=== PATIENT | male | born 1945 | race Caucasian/White ===

== ENCOUNTER 2017-02-26 10:24 | Emergency (ER) | payer MEDICARE ==
[~2017-02-26] VITALS: Ht 165.1 cm; Wt 74.8 kg
[~2017-02-26 10:24] MED LIST: ALBU0.8322 IH; ALBU8.5H2 IH; ASPI-999 PO; ATOR20TA66 PO; Advair; Amoxicillin; BUDE10.2 IH; DOXY100C2 PO; IBUP-30 PO; IPRA3AMP19 IH; LEVO500T69 PO; LSNP20T PO; METH4TAB PO; METO-272 PO; PRD20T PO; RT-ALBUINH IH
--- OUTSIDE RECORDS SUMMARY | 2017-02-26 10:32 | XMS REPORT ---
Author Author BERTO ALMENDAREZ [facility] eClinicalWorks Address Unknown Phone Unavailable Care Team Providers Care Women'S Studies Lecturer Name Role Phone BERTO ALMENDAREZ Unavailable Allergies No Known Allergies Problems Problem Type Condition Code Onset Dates Condition Status Problem Primary localized osteoarthrosis, pelvic region and thigh 715.15 Active Problem Pain in joint, pelvic region and thigh 719.45 Active Problem Enthesopathy of hip region 726.5 Active Problem Need for prophylactic vaccination and inoculation, Influenza V04.81 Active Problem Unspecified essential hypertension 401.9 Active Problem Chronic airway obstruction, not elsewhere classified 496 Active Medications Medication Code System Code Instructions Start Date End Date Status Dosage Symbicort [facility] [address]-15 160-4.5 MCG/ACT Inhalation Twice a day Mar 2 puffs ProAir HFA [facility] [address]-33 90 mcg/actuation Inhalation 4 times a day Jun 07, 2014 inhale 2 puffs by Inhalation route 4 times per day as needed PRN Results No Known Results Summary Purpose eClinicalWorks Submission
--- OUTSIDE RECORDS SUMMARY | 2017-02-26 10:32 | XMS REPORT ---
Author Author RILEY HATFIELD Organization eClinicalWorks Address Unknown Phone Unavailable Care Team Providers Care Radiographer Mammographer Name Role Phone RILEY HATFIELD CP Unavailable Allergies, Adverse Reactions, Alerts Substance Reaction Event Type Spiriva HandiHaler Info Not Available Drug Allergy Problems Problem Type Condition Code Onset Dates Condition Status Assessment Essential hypertension I10 Active Problem Need for prophylactic vaccination and inoculation, Influenza V04.81 Active Assessment Chronic obstructive pulmonary disease, unspecified COPD type J44.9 Active Problem Essential hypertension I10 Active Problem Enthesopathy of hip region 726.5 Active Problem Chronic obstructive pulmonary disease, unspecified COPD type J44.9 Active Problem Unspecified essential hypertension 401.9 Active Problem Chronic airway obstruction, not elsewhere classified 496 Active Problem Primary localized osteoarthrosis, pelvic region and thigh 715.15 Active Problem Pain in joint, pelvic region and thigh 719.45 Active Medications Medication Code System Code Instructions Start Date End Date Status Dosage Ventolin HFA [facility] [address]-38 108 (90 Base) MCG/ACT Inhalation every 4 hrs 2 puffs as needed Albuterol Sulfate [facility] [address]-04 (2.5 MG/3ML) 0.083% Inhalation every 4 hours prn cough or wheezing May 02, 2015 3 ml Lisinopril [facility] [address]-50 10 mg Orally Once a day Feb 28, 2016 1 tablet Symbicort [facility] [address]-96 160-4.5 MCG/ACT Inhalation Twice a day Mar 2 puffs Atorvastatin Calcium [facility] [address]-76 20 MG Orally Once a day 1 tablet Metoprolol Succinate [facility] 0 50 mg Orally Once a day Jun 23, 2015 1 tab Furosemide [facility] [address]-68 20 mg Orally Once a day x 3 d use prn ankle swelling February 12, 2016 1 tablet Aspir-81 [facility] [address]-69 81 MG Orally Once a day 1 tablet Procedures Procedure Coding System Code Date Office Visit, Est Pt., Level 3 CPT-4 47410 Feb 28, 2016 [facility] VISIT ESTABLISHED PATIENT CPT-4 G0467 Feb 28, 2016 Vital Signs Date/Time: Feb 28, 2016 Cardiac Monitoring Heart Rate 92 bpm Weight 194.2 lbs Height 66 in BMI 31.34 Index Blood Pressure Diastolic 70 mmHg Blood Pressure Systolic 154 mmHg Results No Known Results Summary Purpose eClinicalWorks Submission
--- OUTSIDE RECORDS SUMMARY | 2017-02-26 10:32 | XMS REPORT ---
Author Author BERTO ALMENDAREZ eClinicalWorks Address Unknown Phone Unavailable Care Team Providers Care Shear Helper Name Role Phone BERTO ALMENDAREZ Unavailable Allergies, Adverse Reactions, Alerts Substance Reaction Event Type N.K.D.A. Info Not Available Non Drug Allergy Problems Problem Type Condition Code Onset Dates Condition Status Problem Primary localized osteoarthrosis, pelvic region and thigh 715.15 Active Problem Pain in joint, pelvic region and thigh 719.45 Active Problem Enthesopathy of hip region 726.5 Active Problem Need for prophylactic vaccination and inoculation, Influenza V04.81 Active Assessment Chronic obstructive pulmonary disease with acute lower respiratory infection J44.0 Active Problem Unspecified essential hypertension 401.9 Active Problem Chronic airway obstruction, not elsewhere classified 496 Active Medications Medication Code System Code Instructions Start Date End Date Status Dosage Atorvastatin Calcium [facility] [address]-93 20 MG Orally Once a day 1 tablet Albuterol Sulfate [facility] [address]-25 (2.5 MG/3ML) 0.083% Inhalation every 4 hours prn cough or wheezing May 02, 2015 3 ml Aspir-81 [facility] [address]-94 81 MG Orally Once a day 1 tablet Symbicort [facility] [address]-29 160-4.5 MCG/ACT Inhalation Twice a day Mar 2 puffs Incruse Ellipta [facility] [address]-25 62.5 MCG/INH Inhalation Once a day Jun 1 puff ProAir HFA [facility] [address]-55 90 mcg/actuation Inhalation 4 times a day Jun 07, 2014 inhale 2 puffs by Inhalation route 4 times per day as needed PRN Metoprolol Succinate [facility] 0 50 MG Orally Jun 23, 2015 not defined Procedures Procedure Coding System Code Date Office Visit, Est Pt., Level 3 CPT-4 00922 Jul 07, 2015 [facility] VISIT ESTABLISHED PATIENT CPT-4 G0467 Jul 07, 2015 Vital Signs Date/Time: Jul 07, 2015 Temperature 98.4 F Weight 183.4 lbs Height 66 in BMI 29.60 Index Blood Pressure Diastolic 80 mmHg Blood Pressure Systolic 154 mmHg Cardiac Monitoring Heart Rate 92 bpm Results No Known Results Summary Purpose eClinicalWorks Submission
--- OUTSIDE RECORDS SUMMARY | 2017-02-26 10:32 | XMS REPORT ---
Author Author BERTO ALMENDAREZ [facility] eClinicalWorks Address Unknown Phone Unavailable Care Team Providers Care Cutter Finisher Name Role Phone BERTO ALMENDAREZ Unavailable Allergies No Known Allergies Problems Problem Type Condition Code Onset Dates Condition Status Assessment Chronic obstructive pulmonary disease, unspecified J44.9 Active Problem Primary localized osteoarthrosis, pelvic region and thigh 715.15 Active Problem Pain in joint, pelvic region and thigh 719.45 Active Problem Enthesopathy of hip region 726.5 Active Problem Need for prophylactic vaccination and inoculation, Influenza V04.81 Active Assessment Encounter for immunization Z23 Active Problem Unspecified essential hypertension 401.9 Active Problem Chronic airway obstruction, not elsewhere classified 496 Active Medications Medication Code System Code Instructions Start Date End Date Status Dosage Albuterol Sulfate [facility] [address]-68 (2.5 MG/3ML) 0.083% Inhalation every 4 hours prn cough or wheezing May 02, 2015 3 ml Procedures Procedure Coding System Code Date SINGLE IMMUNIZATION ADMIN CPT-4 67615 May 02, 2015 FLUARIX QUAD (3 & UP)-GSK-2014 CPT-4 22670 May 02, 2015 Results No Known Results Immunizations Vaccine Administration Date FLUARIX QUAD (3 & UP)-GSK-2014May 02, 2015 Summary Purpose eClinicalWorks Submission
--- OUTSIDE RECORDS SUMMARY | 2017-02-26 10:32 | XMS REPORT ---
Author Author BERTO ALMENDAREZ [facility] eClinicalWorks Address Unknown Phone Unavailable Care Team Providers Care Hand Bunch Maker Name Role Phone BERTO ALMENDAREZ Unavailable Allergies No Known Allergies Problems Problem Type Condition ICD-9 Code Onset Dates Condition Status Problem Primary [...] Start Date End Date Status Dosage Symbicort [facility] [address]-49 160-4.5 MCG/ACT Inhalation Twice a day Mar 2 puffs Results No Known Results Summary Purpose eClinicalWorks Submission
--- OUTSIDE RECORDS SUMMARY | 2017-02-26 10:32 | XMS REPORT ---
Author Author RILYE HATFIELD Organization eClinicalWorks Address Unknown Phone Unavailable Care Team Providers Care Mirror Silverer Name Role Phone RILEY HATFIELD CP Unavailable Allergies, Adverse Reactions, Alerts Substance Reaction Event Type Spiriva HandiHaler Info Not Available Drug Allergy Problems Problem Type Condition Code Onset Dates Condition Status Assessment Essential hypertension I10 Active Problem Need for prophylactic vaccination and inoculation, Influenza V04.81 Active Assessment Chronic obstructive pulmonary disease, unspecified COPD type J44.9 Active Assessment Pedal edema R60.0 Active Problem Essential hypertension I10 Active Problem [...] Date End Date Status Dosage Atorvastatin Calcium [facility] [address]-50 20 MG Orally Once a day 1 tablet Aspir-81 [facility] [address]-95 81 MG Orally Once a day 1 tablet Symbicort [facility] [address]-04 160-4.5 MCG/ACT Inhalation Twice a day Mar 2 puffs Incruse Ellipta [facility] [address]-13 62.5 MCG/INH Inhalation Once a day Jun 1 puff ProAir HFA [facility] [address]-70 90 mcg/actuation Inhalation 4 times a day Jun 07, 2014 inhale 2 puffs by Inhalation route 4 times per day as needed PRN Albuterol Sulfate [facility] [address]-15 (2.5 MG/3ML) 0.083% Inhalation every 4 hours prn cough or wheezing May 02, 2015 3 ml Metoprolol Succinate [facility] 0 50 MG Orally Once a day Jun 23, 2015 1 tab Furosemide [facility] [address]-88 20 mg Orally Once a day x 3 d use prn ankle swelling February 12, 2016 1 tablet Procedures Procedure Coding System Code Date Office Visit, Est Pt., Level 3 CPT-4 12591 February 12, 2016 [facility] VISIT ESTABLISHED PATIENT CPT-4 G0467 February 12, 2016 Vital Signs Date/Time: February 12, 2016 Cardiac Monitoring Heart Rate 94 bpm Weight 196.2 lbs Height 66 in BMI 31.66 Index Blood Pressure Diastolic 70 mmHg Blood Pressure Systolic 160 mmHg Results No Known Results Summary Purpose eClinicalWorks Submission
--- OUTSIDE RECORDS SUMMARY | 2017-02-26 10:32 | XMS REPORT ---
Author Author BERTO ALMENDAREZ [facility] eClinicalWorks Address Unknown Phone Unavailable Care Team Providers Care Printing Equipment Mechanic Apprentice Name Role Phone BERTO ALMENDAREZ Unavailable Allergies No Known Allergies Problems Problem Type Condition Code Onset Dates Condition Status Problem Primary localized osteoarthrosis, pelvic region and thigh 715.15 Active Problem Pain in joint, pelvic region and thigh 719.45 Active Problem Enthesopathy of hip region 726.5 Active Problem Need for prophylactic vaccination and inoculation, Influenza V04.81 Active Assessment Chronic obstructive pulmonary disease, unspecified J44.9 Active Problem Unspecified essential hypertension 401.9 Active Problem Chronic airway obstruction, not elsewhere classified 496 Active Medications Medication Code System Code Instructions Start Date End Date Status Dosage Albuterol Sulfate [facility] [address]-18 (2.5 MG/3ML) 0.083% Inhalation every 4 hours prn cough or wheezing May 02, 2015 3 ml Results No Known Results Summary Purpose eClinicalWorks Submission
--- OUTSIDE RECORDS SUMMARY | 2017-02-26 10:33 | XMS REPORT ---
Author Author BERTO ALMENDAREZ [facility] eClinicalWorks Address Unknown Phone Unavailable Care Team Providers Care Children'S Literature Professor Name Role Phone BERTO ALMENDAREZ Unavailable Allergies [...] Instructions Start Date End Date Status Dosage Metoprolol Succinate [facility] 0 50 MG Orally Jun 23, 2015 not defined Vital Signs Date/Time: Jun 27, 2015 Blood Pressure Diastolic 90 mmHg Blood Pressure Systolic 130 mmHg Height 66 in Results No Known Results Summary Purpose eClinicalWorks Submission
--- OUTSIDE RECORDS SUMMARY | 2017-02-26 10:33 | XMS REPORT ---
Author Author BRENDA GOODMAN Organization eClinicalWorks Address Unknown Phone Unavailable Care Team Providers Care Supervisor Buffing And Pasting Name Role Phone BRENDA GOODMAN CP Unavailable Allergies No Known Allergies Problems Problem Type Condition ICD-9 Code Onset Dates Condition Status Problem Primary localized osteoarthrosis, pelvic region and thigh 715.15 Active Problem Pain in joint, pelvic region and thigh 719.45 Active Problem Enthesopathy of hip region 726.5 Active Problem Need for prophylactic vaccination and inoculation, Influenza V04.81 Active Assessment Dental examination V72.2 Active Problem Unspecified essential hypertension 401.9 Active Problem Chronic airway obstruction, not elsewhere classified 496 Active Medications No Known Medications Procedures Procedure Coding System Code Date INTRAORL-PERIAPICAL 1 FILM 02104 CPT-4 D0220 February 03, 2015 BITEWING - SINGLE FILM CPT-4 D0270 February 03, 2015 LTD ORAL EVALUATION - PROBLEM FOCUS CPT-4 D0140 February 03, 2015 EXTRAC ERUPTED TOOTH/EXPOSED ROOT CPT-4 D7140 February 03, 2015 Results No Known Results Summary Purpose eClinicalWorks Submission
--- OUTSIDE RECORDS SUMMARY | 2017-02-26 10:33 | XMS REPORT ---
Author Author RILEY HATFIELD Organization eClinicalWorks Address Unknown Phone Unavailable Care Team Providers Care Psychology Tech Name Role Phone RILEY HATFIELD CP Unavailable Allergies No Known Allergies Problems [...] Date End Date Status Dosage Albuterol Sulfate [facility] [address]-10 2.5 mg /3 mL (0.083 %) May 06, 2014 3 mL by Inhalation route every 4 hours cough or wheeze dx code 496 dx of COPD Hydrocodone-Acetaminophen [facility] [address]-44 5-325 MG Orally every 6 hrs PRN January 27, 2015 1 tablet as needed ProAir HFA [facility] [address]-28 90 mcg/actuation Inhalation 4 times a day Jun 07, 2014 inhale 2 puffs by Inhalation route 4 times per day as needed PRN Vital Signs Date/Time: Apr 03, 2015 Blood Pressure Diastolic 74 mmHg Blood Pressure Systolic 142 mmHg Height 66 in Results No Known Results Summary Purpose eClinicalWorks Submission
--- OUTSIDE RECORDS SUMMARY | 2017-02-26 10:33 | XMS REPORT ---
Author Author BERTO ALMENDAREZ eClinicalWorks Address Unknown Phone Unavailable Care Team Providers Care Nuclear Control Operator Name Role Phone BERTO ALMENDAREZ Unavailable Allergies, [...] vaccination and inoculation, Influenza V04.81 Active Assessment Essential hypertension I10 Active Problem Unspecified essential hypertension 401.9 Active Problem Chronic airway obstruction, not elsewhere classified 496 Active Medications Medication Code System Code Instructions Start Date End Date Status Dosage Atorvastatin Calcium [facility] [address]-23 20 MG Orally Once a day 1 tablet Aspir-81 [facility] [address]-90 81 MG Orally Once a day 1 tablet Metoprolol Succinate [facility] 0 50 MG Orally Once a day Jun 23, 2015 1 tab ProAir HFA [facility] [address]-75 90 mcg/actuation Inhalation 4 times a day Jun 07, 2014 inhale 2 puffs by Inhalation route 4 times per day as needed PRN Incruse Ellipta [facility] [address]-77 62.5 MCG/INH Inhalation Once a day Jun 1 puff Symbicort [facility] [address]-21 160-4.5 MCG/ACT Inhalation Twice a day Mar 2 puffs Albuterol Sulfate [facility] [address]-25 (2.5 MG/3ML) 0.083% Inhalation every 4 hours prn cough or wheezing May 02, 2015 3 ml Procedures Procedure Coding System Code Date Office Visit, Est Pt., Level 3 CPT-4 44130 Aug 04, 2015 [facility] VISIT ESTABLISHED PATIENT CPT-4 G0467 Aug 04, 2015 Vital Signs Date/Time: Aug 04, 2015 Temperature 98.3 F Weight 189.3 lbs Height 66 in BMI 30.55 Index Blood Pressure Diastolic 80 mmHg Blood Pressure Systolic 140 mmHg Cardiac Monitoring Heart Rate 78 bpm Results No Known Results Summary Purpose eClinicalWorks Submission
[2017-02-26] MEDS ORDERED: FURO20TA4 (10:50)
[2017-02-26] MEDS ORDERED: AMLO5TAB2 (10:50)
[2017-02-26] MEDS ORDERED: LISI40TA (10:50)
--- NOTE | 2017-02-26 11:06 | ED General ---
General Chief Complaint: General Problems/Pain Stated Complaint: ABD MELONIE Nursing Triage Note: ARRIVED VIA AMB TO ROOM 08. STATES HE THINKS HE HAS PNEUMONIA AGAIN. COMPLAINS OF PAIN LOWER RIGHT LUNG WHEN TAKING A DEEP BREATH SINCE YESTERDAY ALONG WITH SOME SOA THAT IS MORE THEN USUAL. Nursing Sepsis Screen: No Definite Risk Source of Information: Patient Exam Limitations: No Limitations History of Present Illness Time Seen by Provider: 10:40 Initial Comments Here with report of pain to the right lower lung area with deep breathing since yesterday. Does report cough. Does have history of lung problems from smoking but has not smoked in 30-40 years. States that he's had pneumonia before and this is what it feels like. Denies fever or chills. Denies other complaints Timing/Duration: 1-2 Days Severity: Moderate Associated Systoms: Chest Pain, Cough, No Fever/Chills, No Headaches, No Nausea /Vomiting, Shortness of Air, No Weakness Allergies and Home Medications Allergies Coded Allergies: No Known Drug Allergies (Unverified , 03/11/13) Home Medications Albuterol Sulfate 2.5 Mg/3 Ml Solution, 2.5 MG IH Q8H PRN for SHORTNESS OF BREATH, (Reported) Albuterol Sulfate 18 Gm Hfa.aer.ad, 1-2 PUFF IH, (Reported) Amlodipine Besylate 5 Mg Tablet, #90 (Reported) Aspirin 81 Mg Tab.chew, 81 MG PO DAILY@0900, #30 Ref 0 Prescribed by: MYA SMITH on 06/23/15 1129 Atorvastatin Calcium 20 Mg Tablet, 20 MG PO HS, #30 Ref 0 Prescribed by: MYA SMITH on 06/23/15 1129 Budesonide/Formoterol Fumarate 10.2 Gm Hfa.aer.ad, 2 PUFF IH BID, (Reported) Furosemide 20 Mg Tablet, #90 (Reported) Lisinopril 40 Mg Tablet, #90 (Reported) Metoprolol Succinate 50 Mg Tab.er.24h, 50 MG PO DAILY, #30 Ref 0 Prescribed by: MYA SMITH on 06/23/15 1129 Prednisone 20 Mg Tab, 40 MG PO DAILY, #10 Ref 0 Prescribed by: RAFFAELE PATTON on 02/26/17 1346 Constitutional: see HPI, No chills, No fever, No weakness EENTM: no symptoms reported Respiratory: see HPI, cough, No short of breath, No wheezing Cardiovascular: chest pain, No edema, No palpitations Gastrointestinal: No nausea, No vomiting Genitourinary: no symptoms reported Musculoskeletal: no symptoms reported Skin: no symptoms reported All Other Systems Reviewed Negative Unless Noted: Yes Past Hqpiifu-Ejyeyx-Hovykj Hx Patient Social History Alcohol Use: Denies Use Recreational Drug Use: No Smoking Status: Former Smoker Former Smoker/When Quit: Jul 21, 1994 Recent Foreign Travel: No Contact w/Someone Who Travel: No Recent Infectious Disease Expo: No Immunizations Up To Date Tetanus Booster (TDap): More than 5yrs PED Vaccines UTD: Yes Date of Pneumonia Vaccine: Apr 20, 2011 Date of Influenza Vaccine: Apr 20, 2015 Seasonal Allergies Seasonal Allergies: No Surgeries HX Surgeries: Yes (Bilat Hip Replacements, Amputation ) Surgeries: Joint Replacement Respiratory Hx Respiratory Disorders: Yes Respiratory Disorders: Pneumonia, COPD Cardiovascular Hx Cardiac Disorders: Yes Cardiac Disorders: High Cholesterol, Hypertension Neurological Hx Neurological Disorders: No Reproductive System Hx Reproductive Disorders: No Sexually Transmitted Disease: No HIV/AIDS: No Genitourinary Hx Genitourinary Disorders: No Gastrointestinal Hx Gastrointestinal Disorders: No Musculoskeletal Hx Musculoskeletal Disorders: Yes Musculoskeletal Disorders: Arthritis, Fractures Endocrine Hx Endocrine Disorders: No HEENT HX ENT Disorders: No HEENT Disorders: Tinnitis Loss of Vision: Denies Hearing Impairment: Hard of Hearing Cancer Hx Cancer: No Psychosocial Hx Psychiatric Problems: No Integumentary HX Skin/Integumentary Disorder: No Blood Transfusions Hx Blood Disorders: No Adverse Reaction to a Blood Tr: No Reviewed Nursing Assessment Reviewed/Agree w Nursing PMH: Yes Family Medical History Significant Family History: Heart Disease, COPD Family Medial History: Cardiovascular disease 19 FATHER 19 MOTHER Diabetes mellitus 19 FATHER FH: COPD (chronic obstructive pulmonary disease) 19 FATHER Myocardial infarction 19 FATHER 19 MOTHER Physical Exam Vital Signs Vital Sign - Last 12Hours 02/26/17 10:35 Temp 98.9 Pulse 109 Resp 18 B/P (MAP) 139/95 Pulse Ox 93 O2 Delivery Room Air Capillary Refill : Less Than 3 Seconds General Appearance: No Apparent Distress, WD/WN HEENT: PERRL/EOMI, Pharynx Normal Neck: Non Tender, Supple Respiratory: Lungs Clear, Normal Breath Sounds Cardiovascular: Regular Rate, Rhythm, No Murmur Gastrointestinal: Non Tender, Soft Back: Normal Inspection, No CVA Tenderness, No Vertebral Tenderness Extremity: Non Tender, No Calf Tenderness Neurologic/Psychiatric: Alert, Oriented x3 Skin: Normal Color, Warm/Dry Progress/Results/Core Measures Results/Orders Lab Results Laboratory Tests Test 02/26/17 10:55 Range/Units White Blood Count 9.6 4.3-11.0 10^3/uL Red Blood Count 4.22 L 4.35-5.85 10^6/uL Hemoglobin 12.6 L 13.3-17.7 G/DL Hematocrit 38 L 40-54 % Mean Corpuscular Volume 91 80-99 FL Mean Corpuscular Hemoglobin 30 25-34 PG Mean Corpuscular Hemoglobin Concent 33 32-36 G/DL Red Cell Distribution Width 14.0 10.0-14.5 % Platelet Count 303 130-400 10^3/uL Mean Platelet Volume 9.6 7.4-10.4 FL Neutrophils (%) (Auto) 65 42-75 % Lymphocytes (%) (Auto) 22 12-44 % Monocytes (%) (Auto) 8 0-12 % Eosinophils (%) (Auto) 2 0-10 % Basophils (%) (Auto) 2 0-10 % Neutrophils # (Auto) 6.3 1.8-7.8 X 10^3 Lymphocytes # (Auto) 2.1 1.0-4.0 X 10^3 Monocytes # (Auto) 0.8 0.0-1.0 X 10^3 Eosinophils # (Auto) 0.2 0.0-0.3 10^3/uL Basophils # (Auto) 0.2 H 0.0-0.1 10^3/uL Sodium Level 138 135-145 MMOL/L Potassium Level 3.7 3.6-5.0 MMOL/L Chloride Level 102 98-107 MMOL/L Carbon Dioxide Level 26 21-32 MMOL/L Anion Gap 10 5-14 MMOL/L Blood Urea Nitrogen 13 7-18 MG/DL Creatinine 1.48 H 0.60-1.30 MG/DL Estimat Glomerular Filtration Rate 47 BUN/Creatinine Ratio 9 Glucose Level 174 H 70-105 MG/DL Calcium Level 10.1 8.5-10.1 MG/DL Total Bilirubin 0.8 0.1-1.0 MG/DL Aspartate Amino Transf (AST/SGOT) 16 5-34 U/L Alanine Aminotransferase (ALT/SGPT) 23 0-55 U/L Alkaline Phosphatase 72 40-136 U/L Troponin I < 0.30 <0.30 NG/ML C-Reactive Protein High Sensitivity 0.71 H 0.00-0.50 MG/DL Total Protein 6.9 6.4-8.2 GM/DL Albumin 4.0 3.2-4.5 GM/DL My Orders Orders - RAFFAELE PATTON MD Cbc With Automated Diff (02/26/17 10:44) Comprehensive Metabolic Panel (02/26/17 10:44) Hs C Reactive Protein (02/26/17 10:44) Troponin I (02/26/17 10:44) Saline Lock/Iv-Start (02/26/17 10:44) Ekg Tracing (02/26/17 10:44) Chest Pa/Lat (2 View) (02/26/17 10:44) Ct Chest W (02/26/17 12:21) Ns Iv 500 Ml (Sodium Chloride 0.9%) (02/26/17 12:22) Albuterol/Ipra Inhalation Soln (Duoneb I (02/26/17 12:30) Svn Sm Volume Nebulizer Rt-Rfs (02/26/17 12:24) Iohexol Injection (Omnipaque 350 Mg/Ml 1 (02/26/17 13:00) Prednisone Tablet (Deltasone Tablet) (02/26/17 13:45) Medications Given in ED Current Medications Medications Dose Ordered Sig/Efrain Route Start Time Stop Time Status Last Admin Dose Admin Albuterol/ Ipratropium 3 ml ONCE ONCE INH 02/26/17 12:30 02/26/17 12:31 DC 02/26/17 13:17 3 ML Prednisone 40 mg ONCE ONCE PO 02/26/17 13:45 02/26/17 13:46 DC 02/26/17 13:51 40 MG Sodium Chloride 500 ml @ 0 mls/hr Q0M ONCE IV 02/26/17 12:22 02/26/17 12:23 DC 02/26/17 13:05 500 MLS/HR Vital Signs/I&O Vital Sign - Last 12Hours 02/26/17 02/26/17 10:35 13:18 Temp 98.9 Pulse 109 Resp 18 B/P (MAP) 139/95 Pulse Ox 93 95 O2 Delivery Room Air Room Air Blood Pressure Mean: 110 Progress Note : Progress Note Seen and evaluated. IV, labs, EKG and chest x-ray ordered. Monitor patient. 1225: CT chest with contrast ordered due to x-ray results. I did discuss the case with the radiologist and he is recommending contrast. Patient's creatinine is right at the upper limit of available for contrast but we will give IV fluids. All of this was discussed with the patient and significant other who agree. Armando middleton ordered for after CT. Monitor patient. 1335: I did discuss the case with Dr. Brannon after getting results of CT scan. There is concern for spiculated mass concerning for early lung cancer. This needs further evaluation with PET scan. Dr. Brannon will see the patient tomorrow in clinic and set up PET scan. All of the findings and concerns including the concern for cancer and was discussed with the patient who verbalize understanding. Overall he feels better and hasn't had no pain while in the ER. Likely related to bronchitis exacerbation and we will treat as such. Prednisone 40 mg by mouth given. Discharged home with return precautions. Patient verbalize understanding of instructions and agreement with plan. ECG Initial ECG Impression Date: Feb 26, 2017 Initial ECG Impression Time: 10:53 Initial ECG Rate: 99 Initial ECG Rhythm: Normal Sinus Comment Sinus rhythm with left anterior fascicular block. Left axis deviation. No evidence of ST elevation [place]. Overall similar to previous of 22 June 2015. Interpreted by me. Diagnostic Imaging Diagonstic Imaging: Xray Plain Films/CT/US/NM/MRI: chest Comments VIA [facility], [facility]. [place], [place] NAME: DRU SUAREZ [facility] REC#: [id number] PT STATUS: REG ER : 1945 PHYSICIAN: RAFFAELE PATTON MD ADMIT DATE: 02/26/17/ER Draft Date of Exam:02/26/17 CHEST PA/LAT (2 VIEW) INDICATION: COPD. History of pneumonia. COMPARISON: 07/19/2015 FINDINGS: Frontal and lateral radiographic views of the chest were obtained. There is 9 mm micronodular opacity within the left upper lung. This is new compared to prior exam. There is otherwise no new focal consolidation, large effusion, nor pneumothorax. Cardiac silhouette and pulmonary vasculature within normal limits. There is aortic atherosclerosis. Bony structures show no gross acute abnormalities. IMPRESSION: 1. Micronodular opacity in the left upper lung. Further characterization with dedicated CT chest is recommended. 2. No evidence of failure or focal infiltrate. Dictated on workstation # [id number] Dict: 02/26/17 1156 Trans: 02/26/17 1204 [id number] Interpreted by: JAYNA FREDERICK Electronically signed by: Marygonsambrose Imaging: CT Plain Films/CT/US/NM/MRI: chest Comments VIA [facility] [place]. [place], [place] NAME: DRU SUAREZ [facility] REC#: [id number] PT STATUS: REG ER : 1945 PHYSICIAN: RAFFAELE PATTON MD ADMIT DATE: 02/26/17/ER Draft Date of Exam:02/26/17 CT CHEST W PROCEDURE: CT chest with contrast only. TECHNIQUE: Multiple contiguous axial images were obtained through the chest after administration of intravenous contrast. INDICATION: Nodule seen on the chest x-ray in the left upper lobe. CONTRAST: 65 mL of Omnipaque 350 was administered intravenously. FINDINGS: There is an irregular spiculated nodule measuring 1.5 x 1 x 1.1 cm in the left upper lobe. This is concerning for early lung cancer. There is background upper lobe predominant emphysema. Minimal atelectasis along the lower aspect of the left major fissure is noted. No significant consolidation, mass, or other suspicious nodule is seen in the lungs. The heart size is normal. No pericardial or pleural effusion. The thoracic aorta is normal in caliber. No significant lymphadenopathy in the kendell or mediastinum is seen. A borderline lymph node measuring 1 cm in short axis in the right hilum is seen and of questionable significance. Prominent coronary artery atherosclerotic calcifications are noted. No axillary lymphadenopathy is seen. The liver demonstrates a mild degree of diffuse hepatic steatosis. The osseous structures demonstrate degenerative changes. IMPRESSION: 1. There is a 1.5 cm spiculated nodule in the left upper lobe, suspicious for early lung cancer. Further evaluation with a PET/CT is suggested. 2. Advanced emphysema. 3. The findings were discussed with Dr. Patton at the time of dictation. Dictated on workstation # [id number] Dict: 02/26/17 1257 Trans: 02/26/17 1315 [id number] Interpreted by: JG GALINDO MD Electronically signed by: Departure Impression Impression: Primary Impression: COPD in exacerbation Additional Impression: Mass of upper lobe of left lung Disposition: 01 HOME, SELF-CARE Condition: Stable Departure-Patient Inst. Decision time for Depature: 13:44 Referrals: WANDA BRANNON BRIAN E MD (PCP) Primary Care Physician Patient Instructions: Chest Pain (DC), Exacerbation of COPD (DC), Single Pulmonary Nodule Add. Discharge Instructions: All discharge instructions reviewed with patient and/or family. Voiced understanding. It is very important that you follow up with Dr. Brannon's office tomorrow as scheduled at 8 a.m. at the clinic office on the second floor of the hospital. Return for worse pain, fever, vomiting, weakness, rhythm problems or other concerns as needed. Continue home medications as directed. Take other medicines as prescribed. You should use your albuterol nebulizer treatments every 4 hours as needed for chest tightness. Scripts Prednisone (Prednisone) 20 Mg Tab 40 MG PO DAILY, #10 TAB 0 Refills Prov: RAFFAELE PATTON MD 02/26/17 Copy Copies To 1: WANDA BRANNON TIMOTHY D MD Feb 26, 2017 11:06
[2017-02-26 11:08] LABS: BASOPHILS # (AUTO) 0.2 10^3/uL (0.0-0.1); BASOPHILS % (AUTO) 2 % (0-10); EOSINOPHILS # (AUTO) 0.2 10^3/uL (0.0-0.3); EOSINOPHILS % (AUTO) 2 % (0-10); LYMPHOCYTES # (AUTO) 2.1 X 10^3 (1.0-4.0); LYMPHOCYTES % (AUTO) 22 % (12-44); MEAN CORPUSCULAR HEMOGLOBIN 30 PG (25-34); MEAN CORPUSCULAR HGB CONC 33 G/DL (32-36); MEAN CORPUSCULAR VOLUME 91 FL (80-99); MEAN PLATELET VOLUME 9.6 FL (7.4-10.4); MONOCYTES # (AUTO) 0.8 X 10^3 (0.0-1.0); MONOCYTES % (AUTO) 8 % (0-12); NEUTROPHILS # (AUTO) 6.3 X 10^3 (1.8-7.8); NEUTROPHILS % (AUTO) 65 % (42-75); PLATELET COUNT 303 10^3/uL (130-400); RED BLOOD COUNT 4.22 10^6/uL (4.35-5.85); WHITE BLOOD COUNT 9.6 10^3/uL (4.3-11.0)
[2017-02-26 11:29] LABS: ALANINE AMINOTRANSFERASE 23 U/L (0-55); ANION GAP 10 MMOL/L (5-14); ASPARTATE AMINO TRANSFERASE 16 U/L (5-34); BILIRUBIN,TOTAL 0.8 MG/DL (0.1-1.0); BLOOD UREA NITROGEN 13 MG/DL (7-18); BUN/CREATININE RATIO 9; CALCIUM 10.1 MG/DL (8.5-10.1); CARBON DIOXIDE 26 MMOL/L (21-32); CHLORIDE 102 MMOL/L (98-107); CREATININE SERUM 1.48 MG/DL (0.60-1.30); GFR ESTIMATED 47; GLUCOSE 174 MG/DL (70-105); POTASSIUM 3.7 MMOL/L (3.6-5.0); SODIUM 138 MMOL/L (135-145); TOTAL PROTEIN 6.9 GM/DL (6.4-8.2); hs C REACTIVE PROTEIN 0.71 MG/DL (0.00-0.50)
[2017-02-26 11:35] LABS: TROPONIN I < 0.30 NG/ML (<0.30)
--- NOTE | 2017-02-26 12:04 | Diagnostic Imaging Report ---
INDICATION: COPD. History of pneumonia. COMPARISON: 07/19/2015 FINDINGS: Frontal and lateral radiographic views of the chest were obtained. There is 9 mm micronodular opacity within the left upper lung. This is new compared to prior exam. There is otherwise no new focal consolidation, large effusion, nor pneumothorax. Cardiac silhouette and pulmonary vasculature within normal limits. There is aortic atherosclerosis. Bony structures show no gross acute abnormalities. IMPRESSION: 1. Micronodular opacity in the left upper lung. Further characterization with dedicated CT chest is recommended. 2. No evidence of failure or focal infiltrate. Dictated by: Dictated on workstation # [id number]
[2017-02-26] MEDS ORDERED: NS IV 500 ML 500 ML IV ONE (12:22)
[2017-02-26] MEDS ORDERED: RT-ALBUTEROL/IPRATROPIUM 3 ML (DUONEB) VIAL INH ONE (12:30)
[2017-02-26] MEDS ORDERED: IOHEXOL 350 MG/ML 100 ML (OMNIPAQUE 350) VIAL IV ONE (13:00)
--- NOTE | 2017-02-26 13:15 | Diagnostic Imaging Report ---
PROCEDURE: CT chest with contrast only. TECHNIQUE: Multiple contiguous axial images were obtained through the chest after administration of intravenous contrast. INDICATION: Nodule seen on the chest x-ray in the left upper lobe. CONTRAST: 65 mL of Omnipaque 350 was administered intravenously. FINDINGS: There is an irregular spiculated nodule measuring 1.5 x 1 x 1.1 cm in the left upper lobe. This is concerning for early lung cancer. There is background upper lobe predominant emphysema. Minimal atelectasis along the lower aspect of the left major fissure is noted. No significant consolidation, mass, or other suspicious nodule is seen in the lungs. The heart size is normal. No pericardial or pleural effusion. The thoracic aorta is normal in caliber. No significant lymphadenopathy in the kendell or mediastinum is seen. A borderline lymph node measuring 1 cm in short axis in the right hilum is seen and of questionable significance. Prominent coronary artery atherosclerotic calcifications are noted. No axillary lymphadenopathy is seen. The liver demonstrates a mild degree of diffuse hepatic steatosis. The osseous structures demonstrate degenerative changes. IMPRESSION: 1. There is a 1.5 cm spiculated nodule in the left upper lobe, suspicious for early lung cancer. Further evaluation with a PET/CT is suggested. 2. Advanced emphysema. The findings were discussed with Dr. Harrison at the time of dictation. Dictated by: Dictated on workstation # [id number]
[2017-02-26] MEDS ORDERED: predniSONE 20 MG TAB PO ONE (13:45)
[2017-02-26] MEDS ORDERED: PRD20T PO (13:46)
[2017-02-26 13:58] VITALS: BP 151/67
== END 2017-02-26 13:58 | disposition home or self-care (01) ==
LOC: EDUNIT# 10:24 → ER 10:27
DX: J44.1 Chronic obstructive pulmonary disease with (acute) exacerbation (principal); R91.8 Other nonspecific abnormal finding of lung field; E78.00 Pure hypercholesterolemia, unspecified; I10 Essential (primary) hypertension; Z96.643 Presence of artificial hip joint, bilateral; Z87.891 Personal history of nicotine dependence; Z79.82 Long term (current) use of aspirin; Z87.01 Personal history of pneumonia (recurrent); Z82.49 Family history of ischemic heart disease and other diseases of the circulatory system
CPT/HCPCS: 36415; 71020; 71260; 80053; 84484; 85025; 86141; 93005; 94640; 96360

== ENCOUNTER → 2017-03-18 | Outpatient (CLI) | payer MEDICARE ==
[~2017-03-18] MED LIST changes: +AMLO5TAB2; +FURO20TA4; +LISI40TA
--- NOTE | 2017-03-19 10:00 | Diagnostic Imaging Report ---
EXAMINATION: PET/CT. INDICATION: Lung nodule. TECHNIQUE: After intravenous administration of 13.95 mCi of F18-FDG, a series of overlapping emission and transmission PET images was obtained. In the coronal, transaxial and sagittal planes, the area imaged extended from the skull base through the upper thighs. COMPARISON: There are no previous PET/CT examinations available for comparison. FINDINGS: The CT chest exam performed on 02/26/2017 did note a 1.5 cm spiculated nodule in the left upper lobe. That nodular density is again identified on the CT images of this exam and now measures 1.9 cm in maximum diameter. This lesion is slightly hypermetabolic with a maximum SUV of 3.7. I do feel that this finding should be considered neoplastic until proven otherwise. There is no other hypermetabolic activity to suggest the presence of malignancy. The CT images do show that there are numerous diverticuli involving the sigmoid colon. There is no sign of acute diverticulitis. There are also bilateral total hip prostheses in place. The intracranial contents are unremarkable. IMPRESSION: 1. The spiculated lesion in the left upper lung seen on the recent CT chest exam is slightly hypermetabolic. This finding should be considered neoplastic until proven otherwise. 2. There is no other hypermetabolic activity to suggest the presence of neoplasm. 3. These results were discussed with CATERINA Camacho. Dictated by: Dictated on workstation # [id number]
== END ==
LOC: RAD 08:01
PROVIDERS: ATTEND Nurse Practitioner Family
DX: R91.1 Solitary pulmonary nodule (principal); J43.8 Other emphysema; R06.02 Shortness of breath; F17.201 Nicotine dependence, unspecified, in remission

== ENCOUNTER → 2017-03-26 | Outpatient (CLI) | payer MEDICARE ==
[~2017-03-26] MED LIST changes: -METO-272 PO; +METO-370 PO; +RT-ALBUTEROL SULF 2.5 MG/3 ML PRE-MIX VIAL IH ONE
== END ==
LOC: RT 09:50
PROVIDERS: ATTEND Nurse Practitioner Family
DX: J43.8 Other emphysema (principal); R06.02 Shortness of breath; R06.2 Wheezing
CPT/HCPCS: 94060; 94640; 94726; 94729

== ENCOUNTER 2017-08-26 09:31 | Emergency (ER) | payer MEDICARE ==
[~2017-08-26] VITALS: Ht 165.1 cm; Wt 85.7 kg
[~2017-08-26 09:31] MED LIST changes: -RT-ALBUTEROL SULF 2.5 MG/3 ML PRE-MIX VIAL IH ONE
--- OUTSIDE RECORDS SUMMARY | 2017-08-26 09:39 | XMS REPORT | Continuity of Care Document ---
Author Author [facility] Organization [facility] Address Unknown Phone Unavailable Allergies Active Description Code Type Severity Reaction Onset Reported/Identified Relationship to Patient Clinical Status Yes No Known Drug Allergies [id number] Drug Allergy Unknown N/A 03/04/2013 Medications There is no data. Problems Date Dx Coded Attending Type Code Diagnosis Diagnosed By 03/04/2013 ROGER ZARATE DO Ot 486 PNEUMONIA, ORGANISM NOS 03/04/2013 ROGER ZARATE DO Ot 496 CHR AIRWAY OBSTRUCT NEC 03/04/2013 ROGER ZARATE DO Ot 789.01 ABDOMINAL PAIN, RIGHT UPPER QUADRANT 03/16/2013 ABDI WILLSON, RAFFAELE Rebolledo Ot 490 BRONCHITIS NOS 03/16/2013 ABDI WILLSON, RAFFAELE Rebolledo Ot 786.2 COUGH 03/31/2013 401.9 UNSPECIFIED ESSENTIAL HYPERTENSION 03/31/2013 496 CHRONIC AIRWAY OBSTRUCTION NOT ELSEWHERE CLASSIFIED 03/31/2013 V04.81 FLU SHOT 03/31/2013 AGUILA DO GURPREET K 401.9 UNSPECIFIED ESSENTIAL HYPERTENSION 03/31/2013 AGUILA DO GURPREET K 496 CHRONIC AIRWAY OBSTRUCTION NOT ELSEWHERE CLASSIFIED 03/31/2013 AGUILA DO GURPREET K V04.81 FLU SHOT 03/31/2013 AGUILA DO GURPREET K 401.9 UNSPECIFIED ESSENTIAL HYPERTENSION 03/31/2013 AGUILA DO GURPREET K 496 CHRONIC AIRWAY OBSTRUCTION NOT ELSEWHERE CLASSIFIED 03/31/2013 AGUILA DO, GURPREET K V04.81 FLU SHOT 03/31/2013 AGUILA DO, GURPREET K 401.9 UNSPECIFIED ESSENTIAL HYPERTENSION 03/31/2013 AGUILA DO, GURPREET K 496 CHRONIC AIRWAY OBSTRUCTION NOT ELSEWHERE CLASSIFIED 03/31/2013 AGUILA DO GURPREET K V04.81 FLU SHOT 03/31/2013 BERTO ALMENDAREZ APRN E 401.9 UNSPECIFIED ESSENTIAL HYPERTENSION 03/31/2013 BERTO ALMENDAREZ APRN 496 CHRONIC AIRWAY OBSTRUCTION NOT ELSEWHERE CLASSIFIED 03/31/2013 HELLWIG COMMISSIONS SPECIALIST, BERTO E V04.81 FLU SHOT 03/31/2013 AGUILA DO, GURPREET K 401.9 UNSPECIFIED ESSENTIAL HYPERTENSION 03/31/2013 AGUILA DO, GURPREET K 496 CHRONIC AIRWAY OBSTRUCTION NOT ELSEWHERE CLASSIFIED 03/31/2013 AGUILA DO, GURPREET K V04.81 FLU SHOT 03/31/2013 AGUILA DO, GURPREET K 401.9 UNSPECIFIED ESSENTIAL HYPERTENSION 03/31/2013 AGUILA DO, GURPREET K 496 CHRONIC AIRWAY OBSTRUCTION NOT ELSEWHERE CLASSIFIED 03/31/2013 AGUILA DO, GURPREET K V04.81 FLU SHOT 03/31/2013 AGUILA DO, GURPREET K 401.9 UNSPECIFIED ESSENTIAL HYPERTENSION 03/31/2013 AGUILA DO, GURPREET K 496 CHRONIC AIRWAY OBSTRUCTION NOT ELSEWHERE CLASSIFIED 03/31/2013 AGUILA DO, GURPREET K V04.81 FLU SHOT 03/31/2013 AGUILA DO, GURPREET K 401.9 UNSPECIFIED ESSENTIAL HYPERTENSION 03/31/2013 AGUILA DO, GURPREET K 496 CHRONIC AIRWAY OBSTRUCTION NOT ELSEWHERE CLASSIFIED 03/31/2013 AGUILA DO, GURPREET K V04.81 FLU SHOT 03/31/2013 ANGELALJUSTINO COMMISSIONS SPECIALIST BERTO E 401.9 UNSPECIFIED ESSENTIAL HYPERTENSION 03/31/2013 ERICKSON COMMISSIONS SPECIALISTMOISESBERTO E 496 CHRONIC AIRWAY OBSTRUCTION NOT ELSEWHERE CLASSIFIED 03/31/2013 ERICKSON COMMISSIONS SPECIALIST BERTO E V04.81 FLU SHOT 03/31/2013 AGUILA DO, GURPREET K 401.9 UNSPECIFIED ESSENTIAL HYPERTENSION 03/31/2013 AGUILA DO, GURPREET K 496 CHRONIC AIRWAY OBSTRUCTION NOT ELSEWHERE CLASSIFIED 03/31/2013 AGUILA DO, GURPREET K V04.81 FLU SHOT 03/31/2013 WHITE DDS, MARICRUZ J 401.9 UNSPECIFIED ESSENTIAL HYPERTENSION 03/31/2013 WHITE DDS, MARICRUZ J 496 CHRONIC AIRWAY OBSTRUCTION NOT ELSEWHERE CLASSIFIED 03/31/2013 WHITE DDS, MARICRUZ J V04.81 FLU SHOT 03/31/2013 AGUILA DO, GURPREET K 401.9 UNSPECIFIED ESSENTIAL HYPERTENSION 03/31/2013 AGUILA DO, GURPREET K 496 CHRONIC AIRWAY OBSTRUCTION NOT ELSEWHERE CLASSIFIED 03/31/2013 AGUILA DO, GURPREET K V04.81 FLU SHOT 05/26/2013 AGUILA DO, GURPREET K 719.45 PAIN IN JOINT INVOLVING PELVIC REGION AND THIGH 05/26/2013 AGUILA DO, GURPREET K 719.45 PAIN IN JOINT INVOLVING PELVIC REGION AND THIGH 05/26/2013 MOISES AGUILA DOA K 719.45 PAIN IN JOINT INVOLVING PELVIC REGION AND THIGH 05/26/2013 BERTO ALMENDAREZ APRN 719.45 PAIN IN JOINT INVOLVING PELVIC REGION AND THIGH 05/26/2013 AGUILA DOMOISESA K 719.45 PAIN IN JOINT INVOLVING PELVIC REGION AND THIGH 05/26/2013 AGUILA DOMOISESA K 719.45 PAIN IN JOINT INVOLVING PELVIC REGION AND THIGH 05/26/2013 AGUILA MOISES GUERREROA K 719.45 PAIN IN JOINT INVOLVING PELVIC REGION AND THIGH 05/26/2013 AGUILA DOMOISESA K 719.45 PAIN IN JOINT INVOLVING PELVIC REGION AND THIGH 05/26/2013 BERTO ALMENDAREZ APRN 719.45 PAIN IN JOINT INVOLVING PELVIC REGION AND THIGH 05/26/2013 MOISES AGUILA DOA K 719.45 PAIN IN JOINT INVOLVING PELVIC REGION AND THIGH 05/26/2013 MARICRUZ GOODMAN DDS 719.45 PAIN IN JOINT INVOLVING PELVIC REGION AND THIGH 05/26/2013 MOISES AGUILA DOA K 719.45 PAIN IN JOINT INVOLVING PELVIC REGION AND THIGH 07/16/2013 DAMASO QUIÑONES MD Ot 491.21 OBSTR CHRONIC BRONCHITIS, W (ACUTE) EXAC 07/16/2013 DAMASO QUIÑONES MD Ot 786.05 SHORTNESS OF BREATH 07/16/2013 DAMASO QUIÑONES MD Ot 786.05 SHORTNESS OF BREATH 11/18/2013 GURPREET AGUILA DO K 726.5 ENTHESOPATHY OF HIP REGION 11/18/2013 BERTO ALMENDAREZ APRN 726.5 ENTHESOPATHY OF HIP REGION 11/18/2013 GURPREET AGUILA DO 726.5 ENTHESOPATHY OF HIP REGION 11/18/2013 MARICRUZ GOODMAN DDS 726.5 ENTHESOPATHY OF HIP REGION 11/18/2013 GURPREET AGUILA DO 726.5 ENTHESOPATHY OF HIP REGION 11/19/2013 BERTO ALMENDAREZ APRN 715.15 OSTEOARTHROSIS LOCALIZED PRIMARY INVOLVING PELVIC REGION AND THIGH 11/19/2013 MOISES AGUILA DOA K 715.15 OSTEOARTHROSIS LOCALIZED PRIMARY INVOLVING PELVIC REGION AND THIGH 11/19/2013 MARICRUZ GOODMAN DDS 715.15 OSTEOARTHROSIS LOCALIZED PRIMARY INVOLVING PELVIC REGION AND THIGH 11/19/2013 GURPREET AGUILA DO K 715.15 OSTEOARTHROSIS LOCALIZED PRIMARY INVOLVING PELVIC REGION AND THIGH 09/14/2014 DELFINA GUERRERO WANDA Janki Ot 496 09/14/2014 DELFINA DO WANDA Janki Ot 786.09 02/05/2015 DELFINA GUERRERO WANDA Shearer Ot 496 02/05/2015 DELFINA DO WANDA Janki Ot 786.09 02/05/2015 MILLY OLIVA COMMISSIONS SPECIALIST Ot 914.4 INSECT BITE HAND 02/05/2015 MILLY OLIVA COMMISSIONS SPECIALIST Ot E000.8 OTHER EXTERNAL CAUSE STATUS 02/05/2015 MILLY OLIVA COMMISSIONS SPECIALIST Ot E906.4 NONVENOM ARTHROPOD BITE 02/09/2015 DELFINA GUERRERO WANDA M Ot 496 02/09/2015 DELFINA GUERRERO WANDA M Ot 786.09 06/23/2015 DELFINA GUERRERO WANDA M Ot 496 06/23/2015 DELFINA GUERRERO WANDA M Ot 786.09 06/23/2015 MYA SMITH MD Ot E78.5 HYPERLIPIDEMIA, UNSPECIFIED 06/23/2015 MYA SMITH MD Ot I10 ESSENTIAL (PRIMARY) HYPERTENSION 06/23/2015 MYA SMITH MD Ot J44.9 CHRONIC OBSTRUCTIVE PULMONARY DISEASE, U 06/23/2015 MYA SMITH MD Ot R07.9 CHEST PAIN, UNSPECIFIED 06/23/2015 MYA SMITH MD Ot Z87.891 PERSONAL HISTORY OF NICOTINE DEPENDENCE 12/10/2015 WANDA MATHIS DO Ot 496 CHR AIRWAY OBSTRUCT NEC 12/10/2015 WANDA MATHIS DO Ot 786.09 RESPIRATORY ABNORM NEC 12/10/2015 DAMASO QUIÑONES MD Ot G56.22 LESION OF ULNAR NERVE, LEFT UPPER LIMB 12/10/2015 DAMASO QUIÑONES MD Ot Z87.891 PERSONAL HISTORY OF NICOTINE DEPENDENCE 12/11/2015 DAMASO QUIÑONES MD Ot G56.22 LESION OF ULNAR NERVE, LEFT UPPER LIMB 12/11/2015 DAMASO QUIÑONES MD Ot Z87.891 PERSONAL HISTORY OF NICOTINE DEPENDENCE 12/11/2015 DAMASO QUIÑONES MD Ot G56.22 LESION OF ULNAR NERVE, LEFT UPPER LIMB 12/11/2015 DAMASO QUIÑONES MD Ot Z87.891 PERSONAL HISTORY OF NICOTINE DEPENDENCE 02/09/2016 WANDA MATHIS DO Ot 496 CHR AIRWAY OBSTRUCT NEC 02/09/2016 WANDA MATHIS DO Ot 786.09 RESPIRATORY ABNORM NEC 02/12/2016 YANNA SHERIDAN APRN Ot R60.0 LOCALIZED EDEMA 02/12/2016 YANNA SHERIDAN COMMISSIONS SPECIALIST Ot R60.0 LOCALIZED EDEMA 02/13/2016 YANNA SHERIDAN COMMISSIONS SPECIALIST Ot R60.0 LOCALIZED EDEMA 03/05/2016 YANNA SHERIDAN COMMISSIONS SPECIALIST Ot R60.0 LOCALIZED EDEMA 03/15/2016 YANNA SHERIDAN COMMISSIONS SPECIALIST Ot R60.0 LOCALIZED EDEMA 02/26/2017 WANDA MATHIS DO Ot 496 CHR AIRWAY OBSTRUCT NEC 02/26/2017 WANDA MATHIS DO Ot 786.09 RESPIRATORY ABNORM NEC 02/26/2017 YANNA SHERIDAN APRN Ot R60.0 LOCALIZED EDEMA 02/26/2017 RAFFAELE PATTON MD Ot E78.00 PURE HYPERCHOLESTEROLEMIA, UNSPECIFIED 02/26/2017 RAFFAELE PATTON MD, Ot I10 ESSENTIAL (PRIMARY) HYPERTENSION 02/26/2017 RAFFAELE PATTON MD Ot J44.1 CHRONIC OBSTRUCTIVE PULMONARY DISEASE W 02/26/2017 RAFFAELE PATTON MD Ot R07.1 CHEST PAIN ON BREATHING 02/26/2017 RAFFAELE PATTON MD Ot R91.8 OTHER NONSPECIFIC ABNORMAL FINDING OF JOANIE 02/26/2017 RAFFAELE PATTON MD Ot Z79.82 PENITENTIARY (CURRENT) USE OF ASPIRIN 02/26/2017 RAFFAELE PATTON MD Ot Z82.49 FAMILY HX OF ISCHEM HEART DIS AND OTH DI 02/26/2017 RAFFAELE PATTON MD Ot Z87.01 PERSONAL HISTORY OF PNEUMONIA (RECURRENT 02/26/2017 RAFFAELE PATTON MD Ot Z87.891 PERSONAL HISTORY OF NICOTINE DEPENDENCE 02/26/2017 RAFFAELE PATTON MD Ot Z96.643 PRESENCE OF ARTIFICIAL HIP JOINT, BILATE 02/27/2017 RAFFAELE PATTON MD Ot E78.00 PURE HYPERCHOLESTEROLEMIA, UNSPECIFIED 02/27/2017 RAFFAELE PATTON MD Ot I10 ESSENTIAL (PRIMARY) HYPERTENSION 02/27/2017 RAFFAELE PATTON MD Ot J44.1 CHRONIC OBSTRUCTIVE PULMONARY DISEASE W 02/27/2017 RAFFAELE PATTON MD Ot R07.1 CHEST PAIN ON BREATHING 02/27/2017 RAFFAELE PATTON MD Ot R91.8 OTHER NONSPECIFIC ABNORMAL FINDING OF JOANIE 02/27/2017 RAFFAELE PATTON MD Ot 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 02/27/2017 RAFFAELE PATTON MD Ot Z82.49 FAMILY HX OF ISCHEM HEART DIS AND OTH DI 02/27/2017 RAFFAELE PATTON MD, Ot Z87.01 PERSONAL HISTORY OF PNEUMONIA (RECURRENT 02/27/2017 RAFFAELE PATTON MD, Ot Z87.891 PERSONAL HISTORY OF NICOTINE DEPENDENCE 02/27/2017 RAFFAELE PATTON MD Ot Z96.643 PRESENCE OF ARTIFICIAL HIP JOINT, BILATE 03/17/2017 WANDA MATHIS DO Ot 496 CHR AIRWAY OBSTRUCT NEC 03/17/2017 WANDA MATHIS DO Ot 786.09 RESPIRATORY ABNORM NEC 03/17/2017 YANNA SHERIDAN APRN Ot R60.0 LOCALIZED EDEMA 03/26/2017 YANNA SHERIDAN COMMISSIONS SPECIALIST Ot F17.201 NICOTINE DEPENDENCE, UNSPECIFIED, IN REM 03/26/2017 YANNA SHERIDAN COMMISSIONS SPECIALIST Ot J43.8 OTHER EMPHYSEMA 03/26/2017 YANNA SHERIDAN COMMISSIONS SPECIALIST Ot R06.02 SHORTNESS OF BREATH 03/26/2017 YANNA SHERIDAN COMMISSIONS SPECIALIST Ot R91.1 SOLITARY PULMONARY NODULE 04/11/2017 YANNA SHERIDAN COMMISSIONS SPECIALIST Ot F17.201 NICOTINE DEPENDENCE, UNSPECIFIED, IN REM 04/11/2017 YANNA SHERIDAN COMMISSIONS SPECIALIST Ot J43.8 OTHER EMPHYSEMA 04/11/2017 YANNA SHERIDAN COMMISSIONS SPECIALIST Ot R06.02 SHORTNESS OF BREATH 04/11/2017 YANNA SHERIDAN APRN Ot R91.1 SOLITARY PULMONARY NODULE 04/16/2017 YANNA SHERIDAN COMMISSIONS SPECIALIST Ot F17.201 NICOTINE DEPENDENCE, UNSPECIFIED, IN REM 04/16/2017 YANNA SHERIDAN COMMISSIONS SPECIALIST Ot J43.8 OTHER EMPHYSEMA 04/16/2017 YANNA SHERIDAN COMMISSIONS SPECIALIST Ot R06.02 SHORTNESS OF BREATH 04/16/2017 YANNA SHERIDAN APRN Ot R91.1 SOLITARY PULMONARY NODULE 05/21/2017 WANDA MATHIS DO Ot 496 CHR AIRWAY OBSTRUCT NEC 05/21/2017 WANDA MATHIS DO Ot 786.09 RESPIRATORY ABNORM NEC 05/21/2017 YANNA SHERIDAN APRN Ot R60.0 LOCALIZED EDEMA 05/21/2017 YANNA SHERIDAN APRN Ot F17.201 NICOTINE DEPENDENCE, UNSPECIFIED, IN REM 05/21/2017 YANNA SHERIDAN APRN Ot J43.8 OTHER EMPHYSEMA 05/21/2017 YANNA SHERIDAN APRN Ot R06.02 SHORTNESS OF BREATH 05/21/2017 YANNA SHERIDAN APRN Ot R91.1 SOLITARY PULMONARY NODULE 05/21/2017 YANNA SHERIDAN APRN Ot J43.8 OTHER EMPHYSEMA 05/21/2017 YANNA SHERIDAN APRN Ot R06.02 SHORTNESS OF BREATH 05/21/2017 YANNA SHERIDAN APRN Ot R06.2 WHEEZING 05/21/2017 WANDA MATHIS DO Ot E66.9 OBESITY, UNSPECIFIED 05/21/2017 WANDA MATHIS DO Ot J43.8 OTHER EMPHYSEMA 05/21/2017 WANDA MATHIS DO Ot R91.1 SOLITARY PULMONARY NODULE 2017 YANNA SHERIDAN APRN Ot J43.8 OTHER EMPHYSEMA 2017 YANNA SHERIDAN APRN Ot R06.02 SHORTNESS OF BREATH 2017 YANNA SHERIDAN APRN Ot R06.2 WHEEZING 05/29/2017 YANNA SHERIDAN APRN Ot J43.8 OTHER EMPHYSEMA 05/29/2017 YANNA SHERIDAN APRN Ot R06.02 SHORTNESS OF BREATH 05/29/2017 YANNA SHERIDAN APRN Ot R06.2 WHEEZING 06/13/2017 WANDA MATHIS DO Ot E66.9 OBESITY, UNSPECIFIED 06/13/2017 WANDA MATHIS DO M Ot J43.8 OTHER EMPHYSEMA 06/13/2017 WANDA MATHIS DO M Ot R91.1 SOLITARY PULMONARY NODULE 06/19/2017 WANDA MATHIS DO Ot E66.9 OBESITY, UNSPECIFIED 06/19/2017 WANDA MATHIS DO Ot J43.8 OTHER EMPHYSEMA 06/19/2017 WANDA MATHIS DO Ot R91.1 SOLITARY PULMONARY NODULE Procedures Code Description Performed By Performed On G0008 FLU ADMINISTRATION ( MEDICARE ONLY) 03/31/2013 63427 XRAY HIP LEFT UNILATERAL MIN 2 VIEWS 05/26/2013 98888 XRAY HIP LEFT UNILATERAL MIN 2 VIEWS 05/31/2013 28678 JOINT INJECTION- LARGE JOINT (SPECIFY MEDCIN DESCRIPTION) 08/06/201325631 JOINT INJECTION- LARGE JOINT (SPECIFY MEDCIN DESCRIPTION) 08/06/2013 ODILON NICHOLSON 09/24/2013 86553 XRAY HIP RIGHT UNILATERAL MIN 2 VIEWS 10/25/2013 01069 XRAY HIP RIGHT UNILATERAL MIN 2 VIEWS 10/29/2013 Results Test Result Range Complete blood count (CBC) with automated white blood cell (WBC) differential - 02/26/17 10:55 Blood leukocytes automated count (number/volume) 9.6 10*3/uL 4.3-11.0 Blood erythrocytes automated count (number/volume) 4.22 10*6/uL 4.35-5.85 Venous blood hemoglobin measurement (mass/volume) 12.6 g/dL 13.3-17.7 Blood hematocrit (volume fraction) 38 % 40-54 Automated erythrocyte mean corpuscular volume 91 [foz_us] 80-99 Automated erythrocyte mean corpuscular hemoglobin (mass per erythrocyte) 30 pg 25-34 Automated erythrocyte mean corpuscular hemoglobin concentration measurement ( mass/volume) 33 g/dL 32-36 Automated erythrocyte distribution width ratio 14.0 % 10.0-14.5 Automated blood platelet count (count/volume) 303 10*3/uL 130-400 Automated blood platelet mean volume measurement 9.6 [foz_us] 7.4-10.4 Automated blood neutrophils/100 leukocytes 65 % 42-75 Automated blood lymphocytes/100 leukocytes 22 % 12-44 Blood monocytes/100 leukocytes 8 % 0-12 Automated blood eosinophils/100 leukocytes 2 % 0-10 Automated blood basophils/100 leukocytes 2 % 0-10 Blood neutrophils automated count (number/volume) 6.3 10*3 1.8-7.8 Blood lymphocytes automated count (number/volume) 2.1 10*3 1.0-4.0 Blood monocytes automated count (number/volume) 0.8 10*3 0.0-1.0 Automated eosinophil count 0.2 10*3/uL 0.0-0.3 Automated blood basophil count (count/volume) 0.2 10*3/uL 0.0-0.1 Comprehensive metabolic panel - 02/26/17 10:55 Serum or plasma sodium measurement (moles/volume) 138 mmol/L 135-145 Serum or plasma potassium measurement (moles/volume) 3.7 mmol/L 3.6-5.0 Serum or plasma chloride measurement (moles/volume) 102 mmol/L 98-107 Carbon dioxide 26 mmol/L 21-32 Serum or plasma anion gap determination (moles/volume) 10 mmol/L 5-14 Serum or plasma urea nitrogen measurement (mass/volume) 13 mg/dL 7-18 Serum or plasma creatinine measurement (mass/volume) 1.48 mg/dL 0.60-1.30 Serum or plasma urea nitrogen/creatinine mass ratio 9 NRG Serum or plasma creatinine measurement with calculation of estimated glomerular filtration rate 47 NRG Serum or plasma glucose measurement (mass/volume) 174 mg/dL 70-105 Serum or plasma calcium measurement (mass/volume) 10.1 mg/dL 8.5-10.1 Serum or plasma total bilirubin measurement (mass/volume) 0.8 mg/dL 0.1-1.0 Serum or plasma alkaline phosphatase measurement (enzymatic activity/volume) 72 U/L 40-136 Serum or plasma aspartate aminotransferase measurement (enzymatic activity/ volume) 16 U/L 5-34 Serum or plasma alanine aminotransferase measurement (enzymatic activity/volume ) 23 U/L 0-55 Serum or plasma protein measurement (mass/volume) 6.9 g/dL 6.4-8.2 Serum or plasma albumin measurement (mass/volume) 4.0 g/dL 3.2-4.5 Serum or plasma troponin i.cardiac measurement (mass/volume) - 02/26/17 10:55 Serum or plasma troponin i.cardiac measurement (mass/volume) < ng/ mL <0.30 Serum or plasma C reactive protein measurement (mass/volume) - 02/26/17 10:55 Serum or plasma C reactive protein measurement (mass/volume) 0.71 mg /dL 0.00-0.50 Encounters ACCT No. Visit Date/Time Discharge Status Pt. Type Provider Facility Loc./Unit Complaint [id number] 03/04/2013 15:45:00 03/04/2013 23:59:59 CLS Emergency [id number] 11/02/2014 11:26:00 11/02/2014 23:59:59 CLS Outpatient GURPREET AGUILA DO [id number] 01/03/2014 09:44:00 01/03/2014 23:59:59 CLS Outpatient MARICRUZ GOODMAN DDS [id number] 12/17/2013 08:34:00 12/17/2013 23:59:59 CLS Outpatient GURPREET AGULIA DO Saadia [id number] 11/19/2013 09:17:00 11/19/2013 23:59:59 CLS Outpatient ANGELALBERTO BADILLO APRN [id number] 11/18/2013 13:54:00 11/18/2013 23:59:59 CLS Outpatient GURPREET AGUILA DO Saadia [id number] 10/29/2013 13:51:00 10/29/2013 23:59:59 CLS Outpatient GURPREET AGUILA DO Saadia [id number] 10/25/2013 12:17:00 10/25/2013 23:59:59 CLS Outpatient GURPREET AGUILA DO Saadia [id number] 09/24/2013 10:19:00 09/24/2013 23:59:59 CLS Outpatient AGUILA GURPREET GUERRERO Saadia [id number] 08/16/2013 15:50:00 08/16/2013 23:59:59 CLS Outpatient JULIOCESARJUSTINO MAGGI BERTO Hagan [id number] 08/06/2013 09:41:00 08/06/2013 23:59:59 CLS Outpatient GURPREET AGUILA DO Saadia [id number] 05/31/2013 08:27:00 05/31/2013 23:59:59 CLS Outpatient GURPREET AGUILA DO Saadia [id number] 05/26/2013 08:54:00 05/26/2013 23:59:59 CLS Outpatient AGUILA GURPREET GUERRERO Saadia [id number] 03/31/2013 08:20:00 Document Registration [id number] 05/21/2017 08:33:00 05/21/2017 23:59:59 CLS Outpatient WANDA MATHIS DO [facility] RAD LUNG NODULE R91.1 [id number] 03/26/2017 09:50:00 03/26/2017 23:59:59 CLS Outpatient YANNA SHERIDAN APRN [facility] RT COPD [id number] 03/18/2017 08:01:00 03/18/2017 23:59:59 CLS Outpatient YANNA SHERIDAN COMMISSIONS SPECIALIST [facility] RAD LUNG NODULE [id number] 02/26/2017 10:27:00 02/26/2017 13:58:00 DIS Emergency RAFFAELE PATTON MD [facility] ER ABD TIGHNESS [id number] 02/09/2016 10:19:00 02/09/2016 23:59:59 CLS Outpatient YANNA SHERIDAN COMMISSIONS SPECIALIST [facility] RAD EDEMA OF LEFT LOWER EXTREMITY [id number] 12/10/2015 13:52:00 12/10/2015 16:07:00 DIS Emergency DAMASO QUIÑONES MD [facility] ER L SIDE NUMBNESS [id number] 06/22/2015 23:16:00 06/23/2015 11:29:00 DIS Inpatient MYA SMITH MD [facility] 4TH CHEST PAIN [id number] 02/05/2015 14:00:00 02/05/2015 15:20:00 DIS Emergency MILLY OLIVA COMMISSIONS SPECIALIST [facility] ER TICK BITE [id number] 08/22/2014 12:51:00 08/22/2014 23:59:59 CLS Outpatient WANDA MATHIS DO [facility] RT COPD DYSPNEA [id number] 07/16/2013 17:45:00 07/16/2013 18:40:00 DIS Emergency DAMASO QUIÑONES MD [facility] ER SOA [id number] 07/16/2013 14:42:00 07/16/2013 17:31:00 DIS Emergency DAMASO QUIÑONES MD [facility] ER SOA [id number] 03/16/2013 08:32:00 03/16/2013 09:41:00 DIS Emergency RAFFAELE PATTON MD [facility] ER COUGH/CONGESTION [id number] 03/04/2013 15:45:00 03/04/2013 17:48:00 DIS Emergency ROGER ZARATE DO [facility] ER RT SIDE PAIN [id number] 11/24/2017 09:15:00 PEN Preadmit YANNA SHERIDAN APRN [facility] RAD COPD
--- NOTE | 2017-08-26 09:45 | ED Cough/URI ---
General Stated Complaint: PAIN WHEN BREATHING/POSS PNEUMONNIA PER PT Source: patient, old records, spouse History of Present Illness Date Seen by Provider: Aug 26, 2017 Time Seen by Provider: 09:42 Initial Comments PT ARRIVES VIA POV FROM HOME THINKS HE HAS PNEUMONIA HAS HISTORY OF COPD AND FREQUENT PNEUMONIA / BRONCHITIS HAS HAD INCREASED SHORTNESS OF BREATH SINCE 1900 LAST PM--HAS CHRONIC SHORTNESS OF BREATH NO INCREASE IN CHRONIC COUGH NO FEVER/SWEATS/CHILLS NO NASAL CONGESTION/DRAINAGE RIGHT LOWER CHEST HURTS TO TAKE A DEEP BREATH, OTHERWISE NO CHEST PAIN NO SWELLING IN LEGS/FEET OR PAIN IN CALVES PT USED ALBUTEROL NEBULIZER AT 0400 (NORMAL TIME FOR PT TO USE IT--NEXT TX DUE 10:00) , AND IT HELPS. USES SYMBICORT AT 10:00 AM AND 10:00--HAS NOT USED YET TODAY--STATES ALWAYS HELPS STATES HE FEELS MUCH BETTER THAN HE DID AT 0600 THIS AM PCP: DR. HUGO IN [place], [place], WHERE PT LIVES. PULMONOLOGY:DR. MATHIS GIRLFRIEND LIVES HERE IN [place] Allergies and Home Medications Allergies Coded Allergies: No Known Drug Allergies (Unverified , 03/11/13) Home Medications Albuterol Sulfate 2.5 Mg/3 Ml Solution, 2.5 MG IH Q8H PRN for SHORTNESS OF BREATH, (Reported) Albuterol Sulfate 18 Gm Hfa.aer.ad, 1-2 PUFF IH, (Reported) Amlodipine Besylate 5 Mg Tablet, #90 (Reported) Aspirin 81 Mg Tab.chew, 81 MG PO DAILY@0900, #30 Ref 0 Prescribed by: MYA SMITH on 06/23/15 1129 Atorvastatin Calcium 20 Mg Tablet, 20 MG PO HS, #30 Ref 0 Prescribed by: MYA SMITH on 06/23/15 1129 Budesonide/Formoterol Fumarate 10.2 Gm Hfa.aer.ad, 2 PUFF IH BID, (Reported) Cefdinir 300 Mg Capsule, 300 MG PO BID, #20 Prescribed by: ROGER ZARATE on 08/26/17 1105 Furosemide 20 Mg Tablet, #90 (Reported) Lisinopril 40 Mg Tablet, #90 (Reported) Methylprednisolone 4 Mg Tab.ds.pk, 4 MG PO UD, #1 Prescribed by: ROGER ZARATE on 08/26/17 1105 Metoprolol Succinate 50 Mg Tab.er.24h, 50 MG PO DAILY, #30 Ref 0 Prescribed by: MYA SMITH on 06/23/15 1129 Prednisone 20 Mg Tab, 40 MG PO DAILY, #10 Ref 0 Prescribed by: RAFFAELE PATTON on 02/26/17 1346 Constitutional: no symptoms reported, No chills, No diaphoresis, No dizziness, No fever Respiratory: see HPI, cough, phlegm (OCCASIONAL CLEAR), short of breath Cardiovascular: see HPI Gastrointestinal: no symptoms reported Genitourinary: no symptoms reported Musculoskeletal: no symptoms reported Skin: no symptoms reported Psychiatric/Neurological: No Symptoms Reported Hematologic/Lymphatic: No Symptoms Reported Immunological/Allergic: no symptoms reported Past Pepthxz-Sjpnpa-Dzgoca Hx Patient Social History Alcohol Use: Denies Use Recreational Drug Use: No Smoking Status: Former Smoker (2 PPD--QUIT > 30 YEARS AGO) Recent Foreign Travel: No Contact w/Someone Who Travel: No Immunizations Up To Date Tetanus Booster (TDap): More than 5yrs PED Vaccines UTD: Yes Date of Pneumonia Vaccine: Apr 20, 2011 Date of Influenza Vaccine: Apr 20, 2015 Seasonal Allergies Seasonal Allergies: No Surgeries History of Surgeries: Yes (Bilat Hip Replacements, Amputation ) Surgeries: Joint Replacement Respiratory History of Respiratory Disorde: Yes Respiratory Disorders: Pneumonia, Chronic Bronchitis, COPD Currently Using CPAP: No Currently Using BIPAP: No Cardiovascular History of Cardiac Disorders: Yes (STRESS TEST-NEGATIVE) Cardiac Disorders: High Cholesterol, Hypertension Neurological History of Neurological Disord: No Reproductive System Hx Reproductive Disorders: No Sexually Transmitted Disease: No HIV/AIDS: No Genitourinary History of Genitourinary Disor: No Gastrointestinal History of Gastrointestinal Di: Yes Musculoskeletal History of Musculoskeletal Dis: Yes Musculoskeletal Disorders: Arthritis, Fractures Endocrine History of Endocrine Disorders: No HEENT History of HEENT Disorders: Yes HEENT Disorders: Tinnitis Loss of Vision: Denies Hearing Impairment: Hard of Hearing Cancer History of Cancer: No Psychosocial History of Psychiatric Problem: No Integumentary History of Skin or Integumenta: No Blood Transfusions History of Blood Disorders: No Adverse Reaction to a Blood Tr: No Family Medical History Significant Family History: Heart Disease, COPD Family Medial History: Cardiovascular disease 19 FATHER 19 MOTHER Diabetes mellitus 19 FATHER FH: COPD (chronic obstructive pulmonary disease) 19 FATHER Myocardial infarction 19 FATHER 19 MOTHER Physical Exam Vital Signs Vital Signs - First Documented 08/26/17 08/26/17 09:40 10:00 Temp 98.1 Pulse 90 Resp 18 B/P (MAP) 136/74 (94) Pulse Ox 98 O2 Delivery Room Air Capillary Refill : General Appearance: WD/WN, no apparent distress, other (DOES NOT APPEAR TO BE IN ANY DISCOMFORT OR DISTRESS AND NO EVIDENCE OF DYSPNEA) HEENT: PERRL/EOMI, normal ENT inspection Neck: non-tender, full range of motion, supple, normal inspection Respiratory: no respiratory distress, no accessory muscle use, rales (LEFT > RIGHT BASE) Cardiovascular: regular rate, rhythm, no murmur Gastrointestinal: non tender, soft Extremities: normal inspection, no pedal edema, no calf tenderness 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, no motor/sensory deficits, alert, normal mood/affect, oriented x 3 Skin: normal color, warm/dry Focused Exam Evaluation Lactate Level Laboratory Tests 08/26/17 10:00: Lactic Acid Level 1.87 Lactic Acid Level Laboratory Tests Test 08/26/17 10:00 Lactic Acid Level 1.87 MMOL/L (0.50-2.00) Progress/Results/Core Measures Suspected Sepsis SIRS Temperature: Pulse: Respiratory Rate: Laboratory Tests 08/26/17 10:00: White Blood Count 10.2 Blood Pressure / Mean: Laboratory Tests 08/26/17 10:00: Lactic Acid Level 1.87 Laboratory Tests 08/26/17 10:00: Creatinine 1.49H, Platelet Count 340, Total Bilirubin 0.9 Results/Orders Lab Results Laboratory Tests Test 08/26/17 10:00 Range/Units White Blood Count 10.2 4.3-11.0 10^3/uL Red Blood Count 4.64 4.35-5.85 10^6/uL Hemoglobin 13.8 13.3-17.7 G/DL Hematocrit 41 40-54 % Mean Corpuscular Volume 89 80-99 FL Mean Corpuscular Hemoglobin 30 25-34 PG Mean Corpuscular Hemoglobin Concent 34 32-36 G/DL Red Cell Distribution Width 14.6 H 10.0-14.5 % Platelet Count 340 130-400 10^3/uL Mean Platelet Volume 9.6 7.4-10.4 FL Neutrophils (%) (Auto) 68 42-75 % Lymphocytes (%) (Auto) 20 12-44 % Monocytes (%) (Auto) 9 0-12 % Eosinophils (%) (Auto) 2 0-10 % Basophils (%) (Auto) 1 0-10 % Neutrophils # (Auto) 7.0 1.8-7.8 X 10^3 Lymphocytes # (Auto) 2.1 1.0-4.0 X 10^3 Monocytes # (Auto) 0.9 0.0-1.0 X 10^3 Eosinophils # (Auto) 0.2 0.0-0.3 10^3/uL Basophils # (Auto) 0.1 0.0-0.1 10^3/uL Sodium Level 137 135-145 MMOL/L Potassium Level 4.3 3.6-5.0 MMOL/L Chloride Level 102 98-107 MMOL/L Carbon Dioxide Level 24 21-32 MMOL/L Anion Gap 11 5-14 MMOL/L Blood Urea Nitrogen 13 7-18 MG/DL Creatinine 1.49 H 0.60-1.30 MG/DL Estimat Glomerular Filtration Rate 46 BUN/Creatinine Ratio 9 Glucose Level 127 H 70-105 MG/DL Lactic Acid Level 1.87 0.50-2.00 MMOL/L Calcium Level 10.6 H 8.5-10.1 MG/DL Total Bilirubin 0.9 0.1-1.0 MG/DL Aspartate Amino Transf (AST/SGOT) 17 5-34 U/L Alanine Aminotransferase (ALT/SGPT) 22 0-55 U/L Alkaline Phosphatase 78 40-136 U/L Total Protein 7.3 6.4-8.2 GM/DL Albumin 4.3 3.2-4.5 GM/DL Micro Results Microbiology 08/26/17 Influenza Types A,B Antigen (RICHARD) - Final, Complete My Orders Orders - ROGER ZARATE DO Saline Lock/Iv-Start (08/26/17 09:42) Monitor-Rhythm Ecg Trace Only (08/26/17 09:42) Cbc With Automated Diff (08/26/17 09:42) Comprehensive Metabolic Panel (08/26/17 09:42) Lactic Acid Analyzer (08/26/17 09:42) Blood Culture (08/26/17 09:42) Influenza A And B Antigens (08/26/17 09:42) Chest Pa/Lat (2 View) (08/26/17 09:42) Albuterol/Ipra Inhalation Soln (Duoneb I (08/26/17 10:00) Rt Request For Service (08/26/17 09:55) Svn Sm Volume Nebulizer Rt-Rfs (08/26/17 09:55) Ceftriaxone Injection (Rocephin Injectio (08/26/17 11:00) Methylprednisolone Sod Succ (Solu-Medrol (08/26/17 11:00) Medications Given in ED Current Medications Medications Dose Ordered Sig/Efrain Route Start Time Stop Time Status Last Admin Dose Admin Albuterol/ Ipratropium 3 ml ONCE ONCE INH 08/26/17 10:00 08/26/17 10:01 DC 08/26/17 10:02 3 ML Ceftriaxone Sodium 1000 mg/ Sodium Chloride 50 ml @ 100 mls/hr ONCE ONCE IV 08/26/17 11:00 08/26/17 11:29 DC 08/26/17 11:14 100 MLS/HR Methylprednisolone Sodium Succinate 125 mg ONCE ONCE IVP 08/26/17 11:00 08/26/17 11:01 DC 08/26/17 11:14 125 MG Vital Signs/I&O Vital Sign - Last 12Hours 08/26/17 08/26/17 09:40 10:00 Temp 98.1 Pulse 90 Resp 18 B/P (MAP) 136/74 (94) Pulse Ox 98 98 O2 Delivery Room Air Capillary Refill : Progress Note : Progress Note NO COUGH, DYSPNEA OR CHEST PAIN OR SYMPTOMS OF ANY KIND DURING ENTIRE ER STAY Diagnostic Imaging Comments CXR--ATELECTASIS/INFILTRATE RLL PER RADIOLOGIST REPORT @ 1153 Reviewed: Reviewed by Me Departure Impression Impression: Primary Impression: COPD in exacerbation Additional Impressions: Mild renal insufficiency RLL pneumonia Disposition: HOME, SELF-CARE Condition: Stable Departure-Patient Inst. Referrals: WILMER LIN MD (PCP/Family) Primary Care Physician Patient Instructions: COPD Including Emphysema (DC), Community-Acquired Pneumonia, Adult (DC) Add. Discharge Instructions: CONTINUE YOUR INHALER AND NEBULIZERS USUAL LOTS OF CLEAR LIQUIDS FOLLOW UP WITH YOUR DR IN 2-3 DAYS FOR FURTHER CARE RETURN TO ER IF WORSE Scripts Azithromycin (Zithromax) 500 Mg Tablet 500 MG PO DAILY, #5 TAB FOR INFECTION Prov: ROGER ZARATE DO 08/26/17 Methylprednisolone (Medrol) 4 Mg Tab.ds.pk 4 MG PO UD, #1 PKG Prov: ROGER ZARATE DO 08/26/17 Cefdinir (Cefdinir) 300 Mg Capsule 300 MG PO BID for FOR INFECTION, #20 CAP Prov: ROGER ZARATE DO 08/26/17 ROGER ZARATE DO Aug 26, 2017 09:45
[2017-08-26] MEDS ORDERED: RT-ALBUTEROL/IPRATROPIUM 3 ML (DUONEB) VIAL INH ONE (10:00)
[2017-08-26 10:13] LABS: BASOPHILS # (AUTO) 0.1 10^3/uL (0.0-0.1); BASOPHILS % (AUTO) 1 % (0-10); EOSINOPHILS # (AUTO) 0.2 10^3/uL (0.0-0.3); EOSINOPHILS % (AUTO) 2 % (0-10); HEMATOCRIT 41 % (40-54); HEMOGLOBIN 13.8 G/DL (13.3-17.7); LYMPHOCYTES # (AUTO) 2.1 X 10^3 (1.0-4.0); LYMPHOCYTES % (AUTO) 20 % (12-44); MEAN CORPUSCULAR HEMOGLOBIN 30 PG (25-34); MEAN CORPUSCULAR HGB CONC 34 G/DL (32-36); MEAN CORPUSCULAR VOLUME 89 FL (80-99); MEAN PLATELET VOLUME 9.6 FL (7.4-10.4); MONOCYTES # (AUTO) 0.9 X 10^3 (0.0-1.0); MONOCYTES % (AUTO) 9 % (0-12); NEUTROPHILS % (AUTO) 68 % (42-75); PLATELET COUNT 340 10^3/uL (130-400); RED BLOOD COUNT 4.64 10^6/uL (4.35-5.85); RED CELL DISTRIBUTION WIDTH 14.6 % (10.0-14.5); WHITE BLOOD COUNT 10.2 10^3/uL (4.3-11.0)
[2017-08-26 10:32] LABS: ALBUMIN 4.3 GM/DL (3.2-4.5); BILIRUBIN,TOTAL 0.9 MG/DL (0.1-1.0); CALCIUM 10.6 MG/DL (8.5-10.1); CREATININE SERUM 1.49 MG/DL (0.60-1.30); POTASSIUM 4.3 MMOL/L (3.6-5.0); TOTAL PROTEIN 7.3 GM/DL (6.4-8.2)
[2017-08-26] MEDS ORDERED: methylPREDNISolone 125 MG (Solu-MEDROL) VIAL IVP ONE (11:00)
[2017-08-26] MEDS ORDERED: cefTRIAXone INJECTION 1,000 MG in NS (IVPB) 50 ML IV ONE (11:00)
[2017-08-26] MEDS ORDERED: CEFD300C3 PO (11:05)
[2017-08-26] MEDS ORDERED: METH4TAB PO (11:05)
--- NOTE | 2017-08-26 11:45 | Diagnostic Imaging Report ---
INDICATION: Shortness of air with pain in the right lower rib. TECHNIQUE: 2 views of the chest. COMPARISON: 02/26/2017 FINDINGS: Lung volumes are normal. There is mildly increased airspace opacity in the right lower lobe compared to the prior study. No pneumothorax or pleural effusion is seen. The cardiomediastinal silhouette is normal in size. There is aortic atherosclerosis. No acute osseous abnormality is seen. IMPRESSION: Mildly increased airspace opacities in the right lower lobe, may represent atelectasis or infiltrate. Dictated by: Dictated on workstation # [id number]
[2017-08-26] MEDS ORDERED: AZIT500T PO (11:54)
[2017-08-26 12:14] VITALS: BP 140/76
== END 2017-08-26 12:14 | disposition home or self-care (01) ==
LOC: EDUNIT# 09:31 → ER 09:33
DX: J44.0 Chronic obstructive pulmonary disease with (acute) lower respiratory infection (principal); J18.1 Lobar pneumonia, unspecified organism; N28.9 Disorder of kidney and ureter, unspecified; E78.00 Pure hypercholesterolemia, unspecified; I10 Essential (primary) hypertension; Z79.82 Long term (current) use of aspirin; Z79.52 Long term (current) use of systemic steroids; Z87.891 Personal history of nicotine dependence; Z96.643 Presence of artificial hip joint, bilateral; Z87.81 Personal history of (healed) traumatic fracture
CPT/HCPCS: 36415; 71046; 80053; 83605; 85025; 87040; 87804; 93041; 94640; 96365; 96375

== ENCOUNTER 2017-10-14 21:07 | Emergency (ER) | payer MEDICARE ==
[~2017-10-14] VITALS: Ht 167.6 cm; Wt 81.2 kg
[~2017-10-14 21:07] MED LIST changes: +AZIT500T PO; +CEFD300C3 PO
[2017-10-14] MEDS ORDERED: RT-ALBUTEROL/IPRATROPIUM 3 ML (DUONEB) VIAL INH ONE (22:15)
--- NOTE | 2017-10-14 22:18 | ED Respiratory ---
General Chief Complaint: Respiratory Problems Stated Complaint: POSS PNEUMONIA Nursing Triage Note: "lung" pain Source: patient, other (fiance) Exam Limitations: no limitations History of Present Illness Date Seen by Provider: Oct 14, 2017 Time Seen by Provider: 21:51 Initial Comments Patient presents to the ER by private conveyance with a chief complaint that he was up visiting his fiance today and now he thinks he has a pneumonia. He started out with a head cold several days ago and had a few subjective fevers and chills that had gone away but now he feels that settled into his chest and he is having pain in his upper left chest on deep inspiration as well as a productive cough but no fevers currently. He says he has had pneumonia in the past couple years that felt similar to this on his right side. He says he also has a lung mass being followed by Dr. Brannon, pulmonology in his left lung. The plan is to have a CT scan in a few months. He has a history of COPD for which she uses pro-air and Symbicort but he has not had used the pro-air much because he has not felt short of breath or have any wheezing. He has not been on antibiotics in the last 4 weeks. In August 2 months ago he was seen in this ER and started on steroids into antibiotics for an outpatient pneumonia noted as a slight infiltrate in the right lung. He says that he did very well with that course and got over it in about a week or 2 on outpatient therapy. He denies any coronary artery disease or history of congestive heart failure. He does not have orthopnea or swelling of his legs or hands. This chest pain is not reproducible by pushing on his chest but it is by coughing or deep inspiration. He says it feels the same as when he had pneumonia on his other side. Allergies and Home Medications Allergies Coded Allergies: No Known Drug Allergies (Unverified , 03/11/13) Home Medications Albuterol Sulfate 2.5 Mg/3 Ml Solution, 2.5 MG IH Q8H PRN for SHORTNESS OF BREATH, (Reported) Aspirin 81 Mg Tab.chew, 81 MG PO DAILY@0900 Prescribed by: MYA SMITH on 06/23/15 1129 Atorvastatin Calcium 20 Mg Tablet, 20 MG PO HS Prescribed by: MYA SMITH on 06/23/15 1129 Azithromycin 250 Mg Tablet, 250 MG PO DAILY Prescribed by: KAREN MITCHELL on 10/14/172319 Budesonide/Formoterol Fumarate 10.2 Gm Hfa.aer.ad, 2 PUFF IH BID, (Reported) Cefdinir 300 Mg Capsule, 300 MG PO BID Prescribed by: KAREN MITCHELL on 10/14/172319 Methylprednisolone 4 Mg Tab.ds.pk, 4 MG PO UD Prescribed by: ROGER ZARATE on 08/26/17 1105 Metoprolol Succinate 50 Mg Tab.er.24h, 50 MG PO DAILY Prescribed by: MYA SMITH on 06/23/15 1129 Patient Home Medication List Home Medication List Reviewed: Yes Constitutional: chills, No diaphoresis, No dizziness, fever, malaise, No weakness, No weight gain, No weight loss EENTM: No ear pain, No eye pain Respiratory: cough, No dyspnea on exertion, No hemoptysis, No orthopnea, phlegm , No short of breath, No stridor, No wheezing Cardiovascular: see HPI, chest pain, No edema, No Hx of Intervention, No palpitations, No syncope, No vascular heart diseas Gastrointestinal: No abdominal pain, No constipation, No diarrhea, No nausea Genitourinary: No discharge, No dysuria Musculoskeletal: No back pain, No joint pain Skin: No pruritus, No rash Psychiatric/Neurological: Denies Headache, Denies Numbness Past Ddlvhhu-Cllrde-Xrensf Hx Patient Social History Alcohol Use: Denies Use Recreational Drug Use: No Smoking Status: Former Smoker 2nd Hand Smoke Exposure: No Recent Foreign Travel: No Contact w/Someone Who Travel: No Recent Infectious Disease Expo: No Recent Hopitalizations: No Immunizations Up To Date Tetanus Booster (TDap): More than 5yrs PED Vaccines UTD: Yes Date of Pneumonia Vaccine: Apr 20, 2011 Date of Influenza Vaccine: Apr 20, 2015 Seasonal Allergies Seasonal Allergies: No Surgeries History of Surgeries: Yes (Bilat Hip Replacements, Amputation ) Surgeries: Joint Replacement, Orthopedic Respiratory History of Respiratory Disorde: Yes Respiratory Disorders: Pneumonia, Chronic Bronchitis, COPD Currently Using CPAP: No Currently Using BIPAP: No Cardiovascular History of Cardiac Disorders: Yes (STRESS TEST-NEGATIVE) Cardiac Disorders: High Cholesterol, Hypertension Neurological History of Neurological Disord: No Reproductive System Hx Reproductive Disorders: No Sexually Transmitted Disease: No HIV/AIDS: No Genitourinary History of Genitourinary Disor: No Gastrointestinal History of Gastrointestinal Di: No Musculoskeletal History of Musculoskeletal Dis: Yes Musculoskeletal Disorders: Arthritis, Fractures Endocrine History of Endocrine Disorders: No HEENT History of HEENT Disorders: Yes HEENT Disorders: Tinnitis Loss of Vision: Denies Hearing Impairment: Hard of Hearing Cancer History of Cancer: No Psychosocial History of Psychiatric Problem: No Integumentary History of Skin or Integumenta: No Blood Transfusions History of Blood Disorders: No Adverse Reaction to a Blood Tr: No Family Medical History Significant Family History: Heart Disease, COPD Family Medial History: Cardiovascular disease 19 FATHER 19 MOTHER Diabetes mellitus 19 FATHER FH: COPD (chronic obstructive pulmonary disease) 19 FATHER Myocardial infarction 19 FATHER 19 MOTHER Physical Exam Vital Signs Vital Signs - First Documented 10/14/17 21:40 Temp 99.2 Pulse 97 Resp 18 B/P (MAP) 151/78 (102) Pulse Ox 95 O2 Delivery Room Air Capillary Refill : Less Than 3 Seconds General Appearance: WD/WN, no apparent distress Eyes: Bilateral Eye Normal Inspection, Bilateral Eye PERRL, Bilateral Eye EOMI HEENT: PERRL/EOMI, normal ENT inspection, pharynx normal (oral mucosa is moist) Neck: non-tender, full range of motion, supple, normal inspection (no JVD noted ) Respiratory: chest non-tender, lungs clear, no respiratory distress, no accessory muscle use, decreased breath sounds, No crackles Cardiovascular: normal peripheral pulses, regular rate, rhythm, no edema, no JVD Gastrointestinal: non tender, soft Extremities: normal range of motion, no pedal edema, normal capillary refill Neurologic/Psychiatric: alert, normal mood/affect, oriented x 3 Skin: normal color, warm/dry Progress/Results/Core Measures Suspected Sepsis Recent Fever Within 48 Hours: Yes Infection Criteria Present: Suspected New Infection New/Unexplained Altered Menta: No Sepsis Screen: Possible Sepsis Risk Sepsis Diagnosis: SIRS Temperature:99.2 Pulse: 97 Respiratory Rate: 18 Laboratory Tests 10/14/17 22:20: White Blood Count 12.9H Blood Pressure 151 /78 Mean: 102 Laboratory Tests 10/14/17 22:20: Creatinine 1.52H, Platelet Count 356, Total Bilirubin 0.7 Results/Orders Lab Results Laboratory Tests Test 10/14/17 22:20 Range/Units White Blood Count 12.9 H 4.3-11.0 10^3/uL Red Blood Count 4.32 L 4.35-5.85 10^6/uL Hemoglobin 13.0 L 13.3-17.7 G/DL Hematocrit 39 L 40-54 % Mean Corpuscular Volume 90 80-99 FL Mean Corpuscular Hemoglobin 30 25-34 PG Mean Corpuscular Hemoglobin Concent 33 32-36 G/DL Red Cell Distribution Width 15.1 H 10.0-14.5 % Platelet Count 356 130-400 10^3/uL Mean Platelet Volume 9.6 7.4-10.4 FL Neutrophils (%) (Auto) 76 H 42-75 % Lymphocytes (%) (Auto) 16 12-44 % Monocytes (%) (Auto) 7 0-12 % Eosinophils (%) (Auto) 1 0-10 % Basophils (%) (Auto) 1 0-10 % Neutrophils # (Auto) 9.7 H 1.8-7.8 X 10^3 Lymphocytes # (Auto) 2.0 1.0-4.0 X 10^3 Monocytes # (Auto) 0.9 0.0-1.0 X 10^3 Eosinophils # (Auto) 0.2 0.0-0.3 10^3/uL Basophils # (Auto) 0.1 0.0-0.1 10^3/uL Sodium Level 139 135-145 MMOL/L Potassium Level 4.2 3.6-5.0 MMOL/L Chloride Level 105 98-107 MMOL/L Carbon Dioxide Level 25 21-32 MMOL/L Anion Gap 9 5-14 MMOL/L Blood Urea Nitrogen 17 7-18 MG/DL Creatinine 1.52 H 0.60-1.30 MG/DL Estimat Glomerular Filtration Rate 45 BUN/Creatinine Ratio 11 Glucose Level 135 H 70-105 MG/DL Calcium Level 9.6 8.5-10.1 MG/DL Total Bilirubin 0.7 0.1-1.0 MG/DL Aspartate Amino Transf (AST/SGOT) 18 5-34 U/L Alanine Aminotransferase (ALT/SGPT) 19 0-55 U/L Alkaline Phosphatase 72 40-136 U/L Troponin I < 0.30 <0.30 NG/ML C-Reactive Protein High Sensitivity 0.47 0.00-0.50 MG/DL B-Type Natriuretic Peptide 16.2 <100.0 PG/ML Total Protein 6.8 6.4-8.2 GM/DL Albumin 4.1 3.2-4.5 GM/DL My Orders Orders - KAREN MITCHELL Chest Pa/Lat (2 View) (10/14/17 21:55) BNP (10/14/17 22:10) Cbc With Automated Diff (10/14/17 22:10) Comprehensive Metabolic Panel (10/14/17 22:10) Hs C Reactive Protein (10/14/17 22:10) Troponin I (10/14/17 22:10) Sputum Culture (10/14/17 22:10) Albuterol/Ipra Inhalation Soln (Duoneb I (10/14/17 22:15) Svn Sm Volume Nebulizer Rt-Rfs (10/14/17 22:10) Ekg Tracing (10/14/17 22:13) Medications Given in ED Current Medications Medications Dose Ordered Sig/Efrain Route Start Time Stop Time Status Last Admin Dose Admin Albuterol/ Ipratropium 3 ml ONCE ONCE INH 10/14/17 22:15 10/14/17 22:16 DC 10/14/17 22:23 3 ML Vital Signs/I&O Vital Sign - Last 12Hours 10/14/17 21:40 Temp 99.2 Pulse 97 Resp 18 B/P (MAP) 151/78 (102) Pulse Ox 95 O2 Delivery Room Air Capillary Refill : Less Than 3 Seconds Blood Pressure Mean: 102 Progress Note #1: Time: 22:18 Progress Note The patient's vital signs are aseptic. His history sounds like a pleuritic chest pain. We'll obtain a 2 view x-ray some basic labs and give him a breathing treatment see if his diminished breath sounds improve but no wheezing is heard at this time. We'll also obtain a troponin and EKG although there's nothing coronary sounding about his chest pain right now. Progress Note #2: Time: 23:00 Progress Note Kidney function is stable with a creatinine of 1.5. Chest x-ray may show an new prominence of the left upper lobe opacity which would correlate with where he is having his pain. He does have a white blood cell count elevation. CRP is not even marginally elevated. We discussed an inpatient stay for antibiotics and management given his history of COPD however he is not really in any, COPD exacerbation and his repeat lung exam does not change from his previous exam. The patient has heard risk benefits alternatives of the admission versus going home and he would prefer to go home and we can support this with some azithromycin and Rocephin today followed up with Omnicef and azithromycin. He probably will not benefit from steroids is not having any wheezing. He will follow up with his primary care physician by the end of the week or early next week. ECG Initial ECG Impression Date: Oct 14, 2017 Initial ECG Impression Time: 22:34 Initial ECG Rate: 85 Initial ECG Rhythm: Normal Sinus Initial ECG Intervals: Normal Initial ECG Impression: Normal, Nonspecific Changes Initial ECG Comparisson: Unchanged Comment No ST elevation or depression. Diagnostic Imaging Diagonstic Imaging: Xray (2v) Plain Films/CT/US/NM/MRI: chest Comments Compared to 2 view chest x-ray from August 2017 the right lower lobe infiltrate has resolved. Left upper lobe opacity which probably correlates to known mass is seen although it is more prominent today. No other new infiltrates seen. Reviewed: Reviewed by Me Departure Impression Impression: Primary Impression: Pneumonia Qualified Codes: J18.1 - Lobar pneumonia, unspecified organism Additional Impression: Pleuritic chest pain Disposition: HOME, SELF-CARE Condition: Stable Departure-Patient Inst. Decision time for Depature: 23:18 Referrals: WILMER LIN MD (PCP/Family) Primary Care Physician Patient Instructions: Pneumonia, Adult (DC) Add. Discharge Instructions: The pleuritic chest pain you're experiencing can be treated with Tylenol 1000 mg every 8 hours and/or ibuprofen 800 mg every 8 hours as needed. Use your breathing treatments as needed for coughing fits, wheezing or shortness of breath. supervisor calibration the antibiotics and take the azithromycin 1 tablet daily until completion and take the Omnicef one capsule twice a day to completion. If you do not feel you're getting better return to the ER. Follow up with your primary care physician by the end of this week or early next week. All discharge instructions reviewed with patient and/or family. Voiced understanding. Scripts Cefdinir (Cefdinir) 300 Mg Capsule 300 MG PO BID for 9 Days, #18 CAP 0 Refills Prov: KAREN MITCHELL 10/14/17 Azithromycin (Azithromycin) 250 Mg Tablet 250 MG PO DAILY, #4 TAB 0 Refills Prov: KAREN MITCHELL 10/14/17 Copy Copies To 1: WANDA BRANNON TITUS J Oct 14, 2017 22:18
[2017-10-14 22:30] LABS: BASOPHILS # (AUTO) 0.1 10^3/uL (0.0-0.1); BASOPHILS % (AUTO) 1 % (0-10); EOSINOPHILS # (AUTO) 0.2 10^3/uL (0.0-0.3); EOSINOPHILS % (AUTO) 1 % (0-10); HEMATOCRIT 39 % (40-54); LYMPHOCYTES % (AUTO) 16 % (12-44); MEAN CORPUSCULAR HEMOGLOBIN 30 PG (25-34); MEAN CORPUSCULAR HGB CONC 33 G/DL (32-36); MEAN CORPUSCULAR VOLUME 90 FL (80-99); MEAN PLATELET VOLUME 9.6 FL (7.4-10.4); MONOCYTES # (AUTO) 0.9 X 10^3 (0.0-1.0); MONOCYTES % (AUTO) 7 % (0-12); NEUTROPHILS # (AUTO) 9.7 X 10^3 (1.8-7.8); NEUTROPHILS % (AUTO) 76 % (42-75); PLATELET COUNT 356 10^3/uL (130-400); RED BLOOD COUNT 4.32 10^6/uL (4.35-5.85); RED CELL DISTRIBUTION WIDTH 15.1 % (10.0-14.5); WHITE BLOOD COUNT 12.9 10^3/uL (4.3-11.0)
[2017-10-14 22:49] LABS: ALANINE AMINOTRANSFERASE 19 U/L (0-55); ALBUMIN 4.1 GM/DL (3.2-4.5); ALKALINE PHOSPHATASE 72 U/L (40-136); BILIRUBIN,TOTAL 0.7 MG/DL (0.1-1.0); BUN/CREATININE RATIO 11; CALCIUM 9.6 MG/DL (8.5-10.1); CARBON DIOXIDE 25 MMOL/L (21-32); CHLORIDE 105 MMOL/L (98-107); CREATININE SERUM 1.52 MG/DL (0.60-1.30); GFR ESTIMATED 45; GLUCOSE 135 MG/DL (70-105); POTASSIUM 4.2 MMOL/L (3.6-5.0); SODIUM 139 MMOL/L (135-145); TOTAL PROTEIN 6.8 GM/DL (6.4-8.2)
[2017-10-14] MEDS ORDERED: CEFD300C3 PO (23:20)
[2017-10-14] MEDS ORDERED: AZIT250T12 PO (23:20)
[2017-10-14] MEDS ORDERED: LIDOCAINE 1% INJ 50 ML (XYLOCAINE) VIAL ONE (23:23)
[2017-10-14] MEDS ORDERED: AZITHROMYCIN 250 MG TAB (ZITHROMAX) PO ONE (23:30)
[2017-10-14] MEDS ORDERED: LIDOCAINE 1% INJ 20 ML (XYLOCAINE) VIAL INJ ONE (23:30)
[2017-10-14] MEDS ORDERED: cefTRIAXone 1 GM (ROCEPHIN) VIAL IM ONE (23:30)
[2017-10-14 23:34] VITALS: BP 131/85
--- NOTE | 2017-10-15 08:02 | Diagnostic Imaging Report ---
INDICATION: Shortness of breath and cough and left-sided chest pain. PA and lateral chest obtained at 10:20 p.m. FINDINGS: Heart and mediastinal silhouette are normal in appearance. The lungs show no focal infiltrate. There are chronic appearing increased interstitial markings. There is a nodular density in the left lung in the suprahilar region, appearing mildly increased compared to the previous study of 08/26/2017. There is some linear atelectatic change versus scarring in the lingular region. There is no pneumothorax or pleural fluid. IMPRESSION: Left upper lobe lung nodule appears mildly more prominent than on 08/26/17. Chronic appearing increased interstitial markings are again noted. There is no new consolidation or pleural fluid. There is some linear atelectatic change in the lingular region. Dictated by: Dictated on workstation # [id number]
== END 2017-10-14 23:33 | disposition home or self-care (01) ==
LOC: EDUNIT# 21:07 → ER 21:09
DX: J18.9 Pneumonia, unspecified organism (principal); R07.81 Pleurodynia; E78.00 Pure hypercholesterolemia, unspecified; I10 Essential (primary) hypertension; J44.9 Chronic obstructive pulmonary disease, unspecified; Z96.643 Presence of artificial hip joint, bilateral; Z87.81 Personal history of (healed) traumatic fracture; Z87.891 Personal history of nicotine dependence; Z79.82 Long term (current) use of aspirin
CPT/HCPCS: 36415; 71046; 80053; 83880; 84484; 85025; 86141; 93005; 96372

== ENCOUNTER → 2017-11-24 | Outpatient (CLI) | payer MEDICARE ==
[~2017-11-24] MED LIST changes: +ALBU2.5V4 INH; +ASPI-586 PO; +AZIT250T12 PO; -FURO20TA4; +FURO20TA4 PO; -LISI40TA; +LISI40TA PO; +MONT10TA24 PO; +RT-ALBUINH INH; +UMEC62.5 IH
--- NOTE | 2017-11-24 13:24 | Diagnostic Imaging Report ---
PROCEDURE: CT chest without contrast. TECHNIQUE: Multiple contiguous axial images were obtained through the chest without the use of intravenous contrast. INDICATION: Lung mass. FINDINGS: The previous CT chest exam performed on 05/21/2017 noted an 8.6 x 16.6 mm mixed-density nodule in the left upper lobe. This area had mild hypermetabolism on the PET/CT exam of 03/18/2017. On this study, the nodule in question has increased in size and now measures 17.0 x 17.5 mm. This nodule also now has a spiculated margin, and I do feel that this finding should be considered neoplastic until proven otherwise. This lesion would be amenable to CT-guided biopsy. However because of the relatively deep position of the lesion within the lung the possibility of a pneumothorax certainly exists. The lungs are otherwise clear. No new abnormality has developed. The heart size is stable and within normal limits. Dense coronary artery calcifications are evident in the LAD. The aorta is not abnormally dilated. There is no obvious mediastinal or hilar adenopathy. The thyroid gland is generally unremarkable. The sections through the upper abdomen fail to show any sign of an acute abnormality. The bone windows are unremarkable for a fracture or for a destructive lesion. There does appear to be a mild compression deformity of L1. This is unchanged when compared with the previous study. IMPRESSION: 1. The indeterminate nodule in the left upper lung seen on the prior exam has increased in size. The spiculated margin of this lesion also suggests that this finding is neoplastic in nature. Recommendations as above.. 2. The overall appearance of the chest is otherwise unchanged. No new abnormality has developed. 3. These results were discussed with Katya Harper APRN. Dictated by: Dictated on workstation # [id number]
== END ==
LOC: RAD 09:03
PROVIDERS: ATTEND Nurse Practitioner Family
DX: R91.8 Other nonspecific abnormal finding of lung field (principal)
CPT/HCPCS: 71250

== ENCOUNTER 2017-12-22 06:00 | Outpatient (CLI) | payer MEDICARE ==
[~2017-12-22] VITALS: Ht 167.6 cm; Wt 81.2 kg
[~2017-12-22 06:00] MED LIST changes: -ALBU2.5V4 INH; -ASPI-586 PO; -MONT10TA24 PO; -RT-ALBUINH INH; -UMEC62.5 IH
[2017-12-22] MEDS ORDERED: ATOR20TA66 PO (15:59)
[2017-12-22] MEDS ORDERED: UMEC62.5 IH (15:59)
[2017-12-22] MEDS ORDERED: ASPI-586 PO (15:59)
[2017-12-22] MEDS ORDERED: RT-ALBUINH INH (15:59)
[2017-12-22] MEDS ORDERED: MONT10TA24 PO (15:59)
[2017-12-22] MEDS ORDERED: ALBU2.5V4 INH (15:59)
[2017-12-22] MEDS ORDERED: METO-370 PO (15:59)
== END 2017-12-22 16:01 ==
LOC: PREOP 06:00
PROVIDERS: ATTEND Internal Medicine Critical Care Medicine
DX: Z01.818 Encounter for other preprocedural examination (principal)

== ENCOUNTER 2017-12-29 06:33 | Day surgery (SDC) | payer MEDICARE ==
[~2017-12-29] VITALS: Ht 167.6 cm; Wt 81.2 kg
[~2017-12-29 06:33] MED LIST changes: +ALBU2.5V4 INH; +ASPI-586 PO; +MONT10TA24 PO; +RT-ALBUINH INH; +UMEC62.5 IH
[2017-12-29] MEDS ORDERED: LIDOCAINE PF 1% 2 ML AMP INJ ONE (06:34)
[2017-12-29] MEDS ORDERED: LIDOCAINE 4% INJ (XYLOCAINE) 5ML AMP INJ ONE (06:34)
[2017-12-29] MEDS ORDERED: LIDOCAINE JELLY 2% (XYLOCAINE) 30 ML TUBE TOP ONE (06:34)
[2017-12-29 07:10] VITALS: BP 132/80
[2017-12-29] MEDS ORDERED: LACTATED RINGERS 1,000 ML IV ONE (07:12)
[2017-12-29] MEDS ORDERED: LACTATED RINGERS 1,000 ML IV PRN (07:15)
[2017-12-29] MEDS ORDERED: fentaNYL INJECTION 100 MCG/2 ML AMP ONE ×2 (07:48)
[2017-12-29] MEDS ORDERED: MIDAZOLAM 2 MG/2 ML (VERSED) VIAL ONE ×4 (07:48)
--- NOTE | 2017-12-29 07:54 | Progress Note-Pre Operative ---
Pre-Operative Progress Note H&P Reviewed The H&P was reviewed, patient examined and no changes noted. Time Seen by Provider: 07:54 Date H&P Reviewed: Dec 29, 2017 Time H&P Reviewed: 07:54 Pre-Operative Diagnosis: WANDA Segal DO Dec 29, 2017 07:54
--- NOTE | 2017-12-29 07:55 | Pre-Op Note & Conscious Sedat ---
Pre-Operative Progress Note H&P Reviewed The H&P was reviewed, patient examined and no changes noted. Date H&P Reviewed: Dec 29, 2017 Time H&P Reviewed: 07:54 Conscious Sedation Pre-Proced Time Reviewed: 07:54 ASA Class: 3 Airway Mallampati Classification: ([place] appropriate class) I. II. III, IV Lungs Heart ASA score ASA 1: a normal healthy patient ASA 2: a patient with a mild systemic disease (mid diabetes, controlled hypertension, obesity ASA 3: a patient with a severe systemic disease that limits activity (angina , COPD, prior Myocardial infarction) ASA 4: a patient with an incapacitating disease that is a constant threat to life (CHF, renal failure) ASA 5: a moribund patient not expected to survive 24 hrs. (ruptured aneurysm) ASA 6: a declared brain patient whose organs are being harvested. For emergent operations, add the letter E after the classification Grade 3 Sedation Plan: Analgesia, Amnesia, Plan communicated to team members, Discussed options with patient/fam, Discussed risks with patient/fam Note The patient is an appropriate candidate to undergo the planned procedure, sedation, and anesthesia. The patient immediately re-assessed prior to indication. WANDA MATHIS DO Dec 29, 2017 07:55
[2017-12-29] MEDS: MIDAZOLAM 2 MG/2 ML (VERSED) VIAL IVP PRN ×3 (08:00→08:11)
[2017-12-29] MEDS: fentaNYL INJECTION 100 MCG/2 ML AMP IVP PRN ×3 (08:02→08:12)
--- NOTE | 2017-12-29 08:52 | Pulmonary Procedures ---
Pulmonary Procedures Date of Procedure Date of Service: Dec 29, 2017 Bronch Bronchoscopy with Fluoroscopy bronchoalveolar lavage (BAL), transbronchial washes and, brushes. Percepta brushing of cassie Preop DX ILD Postop DX: same Complications: none After informed consent obtained and formal time out pt was sedated using Fentanyl and Versed. Bronchoscope was advanced through the nare and vocal cords. 1% lidocaine was used to anesthetize vocal cords, epiglottis, cassie, and left/right main stem bronchus. An anatomical tour was undertaken down to the segmental bronchi bilaterally. No endobronchial lesions noted. Percepta brush was used at Cassie right side. From the JAYLAN a bronchoalveolar lavage (BAL ), transbronchial washes and, brushes were obtained using fluoroscopy. Pt tolerated procedure well. No complications noted. Stat CXR is pending. WANDA MATHIS DO Dec 29, 2017 08:52
[2017-12-29 09:05] VITALS: BP 104/77
--- NOTE | 2017-12-29 09:28 | Diagnostic Imaging Report ---
INDICATION: Post bronchoscopy followup Portable chest 9:16 AM There is a patchy area of atelectasis of the left lung base. There is a nodular density in the left upper lobe. There is no effusion or pneumothorax. IMPRESSION: Post bronchoscopy image does not show any evidence for pneumothorax. Dictated by: Dictated on workstation # [id number]
[2017-12-29 10:00] VITALS: BP 131/67
[2017-12-29 10:10] VITALS: BP 131/67
--- NOTE | 2017-12-29 10:21 | Diagnostic Imaging Report ---
INDICATION: Pulmonary nodule IMPRESSION: 21 seconds of fluoroscopy and 15 digital images were obtained during bronchoscopy procedure by Dr. Brannon. Images show bronchoscope tip in the left upper lobe. Dictated by: Dictated on workstation # [id number]
== END 2017-12-29 10:10 | disposition home or self-care (01) ==
LOC: ENDO 06:33
PROVIDERS: ATTEND Internal Medicine Critical Care Medicine
DX: J84.9 Interstitial pulmonary disease, unspecified (principal); J44.9 Chronic obstructive pulmonary disease, unspecified; E66.9 Obesity, unspecified; R91.1 Solitary pulmonary nodule
CPT/HCPCS: 71045; 87070; 87077; 87101; 87116; 87186; 87205; 88112; 88305; 88312; 94640

== ENCOUNTER 2018-02-05 10:45 | Day surgery (SDC) | payer MEDICARE ==
[2018-02-05] VITALS (13 sets, daily range): BP systolic 115–137; BP diastolic 51–78
[~2018-02-05] VITALS: Ht 167.6 cm; Wt 81.2 kg
[2018-02-05 08:20] LABS: HEMOGLOBIN 12.1 G/DL (13.3-17.7); MEAN PLATELET VOLUME 9.5 FL (7.4-10.4); RED BLOOD COUNT 4.02 10^6/uL (4.35-5.85); WHITE BLOOD COUNT 7.5 10^3/uL (4.3-11.0)
[2018-02-05 08:38] LABS: PROTHROMBIN TIME PATIENT 13.7 SEC (12.2-14.7)
[~2018-02-05 10:45] MED LIST changes: +ACETAMINOPHEN 500 MG TAB (TYLENOL) PO ONE; +HYDROcodone/APAP 5 MG/325 MG (LORTAB) TAB PO PRN; +LIDOCAINE 1% INJ 20 ML 20 ML VIAL INJ ONE; +MIDAZOLAM 2 MG/2 ML (VERSED) VIAL IVP PRN; +NS IV 1000 ML 1,000 ML IV STA; +fentaNYL INJECTION 100 MCG/2 ML AMP IVP PRN
--- NOTE | 2018-02-05 11:24 | Diagnostic Imaging Report ---
INDICATION: Left upper lobe lung mass. Patient presents for CT-guided biopsy. FINDINGS: Patient brought to the CT suite, placed on the table in the supine position. Axial imaging through the chest was performed to evaluate appropriate entry site. Skin of the left chest was prepped and draped in usual sterile fashion. A small amount of 1% lidocaine was utilized for local anesthesia. A 20-gauge coaxial Temno needle was advanced into the spiculated mass in the left upper lobe. Total of 4 core biopsies were obtained. Blood patch was injected during needle removal. Hemostasis was obtained using manual compression. Followup imaging demonstrates some airspace infiltrate consistent with injected blood. No pneumothorax is seen. IMPRESSION: CT-guided core biopsy of the spiculated left upper lobe mass. Pathology results are currently pending. Dictated by: Dictated on workstation # [id number]
--- NOTE | 2018-02-05 12:07 | Pre-Procedure Progress Note ---
Pre-Procedure Progress Note H&P Reviewed The H&P was reviewed, patient examined and no changes noted. Date H&P Reviewed: Feb 05, 2018 Time H&P Reviewed: 09:00 Pre-Procedure Diagnosis: Left lung mass YA WALDEN MD Feb 05, 2018 12:07
--- NOTE | 2018-02-05 12:15 | Diagnostic Imaging Report ---
INDICATION: Left lung mass. Patient is status post CT-guided biopsy. TIME OF EXAMINATION: 11:42 a.m. COMPARISON: Correlation is made with prior study dated 12/29/2017. FINDINGS: Mild left perihilar infiltrate is seen. No pneumothorax is seen status post lung biopsy. Right lung is clear. IMPRESSION: No evidence of pneumothorax, status post left lung biopsy. Dictated by: Dictated on workstation # [id number]
--- OUTSIDE RECORDS SUMMARY | 2018-02-05 12:45 | XMS REPORT | Continuity of Care Document ---
Author Author [facility] Address Unknown Phone Unavailable Allergies Active Description Code Type Severity Reaction Onset Reported/Identified Relationship to Patient Clinical Status Yes No Known Drug Allergies [id number] Drug Allergy Unknown N/A 12/29/2017 Medications There is no data. Problems Date [...] UNSPECIFIED ESSENTIAL HYPERTENSION 03/31/2013 BERTO ALMENDAREZ APRN E 496 CHRONIC AIRWAY OBSTRUCTION NOT ELSEWHERE CLASSIFIED 03/31/2013 BERTO ALMENDAREZ APRN V04.81 FLU SHOT 03/31/2013 AGUILA DO, GURPREET [...] GURPREET K V04.81 FLU SHOT 03/31/2013 ANGELALJUSTINO SOFTWARE DEVELOPMENT TEST ENGINEER BERTO E 401.9 UNSPECIFIED ESSENTIAL HYPERTENSION 03/31/2013 ERICKSON SOFTWARE DEVELOPMENT TEST ENGINEER BERTO E 496 CHRONIC AIRWAY OBSTRUCTION NOT ELSEWHERE CLASSIFIED 03/31/2013 ERICKSON SOFTWARE DEVELOPMENT TEST ENGINEER BERTO E V04.81 FLU SHOT 03/31/2013 AGUILA [...] PRIMARY INVOLVING PELVIC REGION AND THIGH 09/14/2014 WANDA MATHIS DO Ot 496 09/14/2014 DELFINA GUERRERO WANDA M Ot 786.09 02/05/2015 DELFINA WANDA Janki Ot 496 02/05/2015 DELFINA GUERRERO WANDA M Ot 786.09 02/05/2015 MILLY OLIVA SOFTWARE DEVELOPMENT TEST ENGINEER Ot 914.4 INSECT BITE HAND 02/05/2015 MLILY LOIVA SOFTWARE DEVELOPMENT TEST ENGINEER Ot E000.8 OTHER EXTERNAL CAUSE STATUS 02/05/2015 MILLY OLIVA SOFTWARE DEVELOPMENT TEST ENGINEER Ot E906.4 NONVENOM ARTHROPOD BITE 02/09/2015 WANDA MATHIS DO Ot 496 02/09/2015 DELFINA GUERRERO WANDA M [...] Ot R60.0 LOCALIZED EDEMA 02/12/2016 YANNA SHERIDAN APRN Ot R60.0 LOCALIZED EDEMA 02/13/2016 YANNA SHERIDAN SOFTWARE DEVELOPMENT TEST ENGINEER Ot R60.0 LOCALIZED EDEMA 03/05/2016 YANNA SHERIDAN SOFTWARE DEVELOPMENT TEST ENGINEER Ot R60.0 LOCALIZED EDEMA 03/15/2016 YANNA SHERIDAN APRN Ot R60.0 LOCALIZED EDEMA 02/26/2017 WANDA MATHIS [...] JOANIE 02/26/2017 RAFFAELE PATTON MD Ot Z79.82 MITTEN SEWER (CURRENT) USE OF ASPIRIN 02/26/2017 RAFFAELE PATTON [...] JOANIE 02/27/2017 RAFFAELE PATTON MD Ot Z79.82 SENIOR LIVING (CURRENT) USE OF ASPIRIN 02/27/2017 RAFFAELE PATTON MD Ot Z82.49 FAMILY HX OF ISCHEM HEART DIS AND OTH DI 02/27/2017 RAFFAELE PATTON MD Ot Z87.01 PERSONAL HISTORY OF PNEUMONIA (RECURRENT 02/27/2017 RAFFAELE PATTON MD Ot Z87.891 PERSONAL HISTORY OF NICOTINE DEPENDENCE 02/27/2017 RAFFAELE PATTON MD Ot Z96.643 PRESENCE OF ARTIFICIAL HIP JOINT, BILATE 03/17/2017 WANDA MATHIS DO Ot 496 CHR AIRWAY OBSTRUCT NEC 03/17/2017 WANDA MATHIS DO Ot 786.09 RESPIRATORY ABNORM NEC 03/17/2017 YANNA SHERIDAN APRN Ot R60.0 LOCALIZED EDEMA 03/26/2017 YANNA SHERIDAN APRN Ot F17.201 NICOTINE DEPENDENCE, UNSPECIFIED, IN REM 03/26/2017 YANNA SHERIDAN APRN Ot J43.8 OTHER EMPHYSEMA 03/26/2017 YANNA SHERIDAN SOFTWARE DEVELOPMENT TEST ENGINEER Ot R06.02 SHORTNESS OF BREATH 03/26/2017 YANNA SHERIDAN APRN Ot R91.1 SOLITARY PULMONARY NODULE 04/11/2017 YANNA SHERIDAN APRN Ot F17.201 NICOTINE DEPENDENCE, UNSPECIFIED, IN REM 04/11/2017 YANNA SHERIDAN SOFTWARE DEVELOPMENT TEST ENGINEER Ot J43.8 OTHER EMPHYSEMA 04/11/2017 YANNA SHERIDAN APRN Ot R06.02 SHORTNESS OF BREATH 04/11/2017 YANNA SHERIDAN APRN Ot R91.1 SOLITARY PULMONARY NODULE 04/16/2017 YANNA SHERIDAN APRN Ot F17.201 NICOTINE DEPENDENCE, UNSPECIFIED, IN REM 04/16/2017 YANNA SHERIDAN SOFTWARE DEVELOPMENT TEST ENGINEER Ot J43.8 OTHER EMPHYSEMA 04/16/2017 YANNA SHERIDAN SOFTWARE DEVELOPMENT TEST ENGINEER Ot R06.02 SHORTNESS OF BREATH 04/16/2017 YANNA SHERIDAN APRN Ot R91.1 SOLITARY PULMONARY NODULE 05/21/2017 WANDA MATHIS DO Ot 496 CHR AIRWAY OBSTRUCT NEC 05/21/2017 WANDA MATHIS DO Ot 786.09 RESPIRATORY ABNORM NEC 05/21/2017 YANNA SHERIDAN APRN Ot R60.0 LOCALIZED EDEMA 05/21/2017 YANNA SHERIDAN SOFTWARE DEVELOPMENT TEST ENGINEER Ot F17.201 NICOTINE DEPENDENCE, UNSPECIFIED, IN REM 05/21/2017 YANNA SHERIDAN SOFTWARE DEVELOPMENT TEST ENGINEER Ot J43.8 OTHER EMPHYSEMA 05/21/2017 YANNA SHERIDAN SOFTWARE DEVELOPMENT TEST ENGINEER Ot R06.02 SHORTNESS OF BREATH 05/21/2017 YANNA SHERIDAN APRN Ot R91.1 SOLITARY PULMONARY NODULE 05/21/2017 YANNA SHERIDAN APRN Ot J43.8 OTHER EMPHYSEMA 05/21/2017 YANNA SHERIDAN APRN Ot R06.02 SHORTNESS OF BREATH 05/21/2017 YANNA SHERIDAN APRN Ot R06.2 WHEEZING 05/21/2017 WANDA MATHIS DO Ot E66.9 OBESITY, UNSPECIFIED 05/21/2017 WANDA MATHIS DO M Ot J43.8 OTHER EMPHYSEMA 05/21/2017 WANDA MATHIS DO M Ot R91.1 SOLITARY PULMONARY NODULE 2017 YANNA [...] MATHIS DO Ot J43.8 OTHER EMPHYSEMA 06/19/2017 DELFINAWANDA BACH DO Ot R91.1 SOLITARY PULMONARY NODULE 08/26/2017 TESSA DO, ROGER K Ot E78.00 PURE HYPERCHOLESTEROLEMIA, UNSPECIFIED 08/26/2017 TESSA DO, ROGER K Ot I10 ESSENTIAL (PRIMARY) HYPERTENSION 08/26/2017 TESSA DO, ROGER K Ot J18.1 LOBAR PNEUMONIA, UNSPECIFIED ORGANISM 08/26/2017 TESSA DO, ROGER K Ot J44.0 CHRONIC OBSTRUCTIVE PULMON DISEASE W ACU 08/26/2017 TESSA DO, ROGER K Ot N28.9 DISORDER OF KIDNEY AND URETER, UNSPECIFI 08/26/2017 TESSA DO, ROGER K Ot R06.09 OTHER FORMS OF DYSPNEA 08/26/2017 TESSA DO, ROGER K Ot Z79.52 MITTEN SEWER (CURRENT) USE OF SYSTEMIC STER 08/26/2017 TESSA DO, ROGER K Ot Z79.82 SENIOR LIVING (CURRENT) USE OF ASPIRIN 08/26/2017 TESSA DO, ROGER K Ot Z87.81 PERSONAL HISTORY OF (HEALED) TRAUMATIC F 08/26/2017 TESSA DO, ROGER K Ot Z87.891 PERSONAL HISTORY OF NICOTINE DEPENDENCE 08/26/2017 TESSA DO, ROGER K Ot Z96.643 PRESENCE OF ARTIFICIAL HIP JOINT, BILATE 08/28/2017 TESSA DO, ROGER K Ot E78.00 PURE HYPERCHOLESTEROLEMIA, UNSPECIFIED 08/28/2017 TESSA DO, ROGER K Ot I10 ESSENTIAL (PRIMARY) HYPERTENSION 08/28/2017 TESSA DO ROGER K Ot J18.1 LOBAR PNEUMONIA, UNSPECIFIED ORGANISM 08/28/2017 TESSA DO ROGER K Ot J44.0 CHRONIC OBSTRUCTIVE PULMON DISEASE W ACU 08/28/2017 TESSA DO, ROGER K Ot N28.9 DISORDER OF KIDNEY AND URETER, UNSPECIFI 08/28/2017 TESSA DO, ROGER K Ot R06.09 OTHER FORMS OF DYSPNEA 08/28/2017 TESSA DO, ROGER K Ot Z79.52 MITTEN SEWER (CURRENT) USE OF SYSTEMIC STER 08/28/2017 TESSA DO, ROGER K Ot Z79.82 SENIOR LIVING (CURRENT) USE OF ASPIRIN 08/28/2017 TESSA DO, ROGER K Ot Z87.81 PERSONAL HISTORY OF (HEALED) TRAUMATIC F 08/28/2017 ROGER ZARATE DO K Ot Z87.891 PERSONAL HISTORY OF NICOTINE DEPENDENCE 08/28/2017 ROGER ZARATE DO Ot Z96.643 PRESENCE OF ARTIFICIAL HIP JOINT, BILATE 10/14/2017 KAREN MITCHELL MD Ot E78.00 PURE HYPERCHOLESTEROLEMIA, UNSPECIFIED 10/14/2017 KAREN MITCHELL MD J Ot I10 ESSENTIAL (PRIMARY) HYPERTENSION 10/14/2017 KAREN MITCHELL MD J Ot J18.9 PNEUMONIA, UNSPECIFIED ORGANISM 10/14/2017 KAREN MITCHELL MD J Ot J44.9 CHRONIC OBSTRUCTIVE PULMONARY DISEASE, U 10/14/2017 KAREN MITCHELL MD J Ot R07.81 PLEURODYNIA 10/14/2017 KAREN MITCHELL MD J Ot R07.89 OTHER CHEST PAIN 10/14/2017 KAREN MITCHELL MD J Ot Z79.82 MITTEN SEWER (CURRENT) USE OF ASPIRIN 10/14/2017 KAREN MITCHELL MD J Ot Z87.81 PERSONAL HISTORY OF (HEALED) TRAUMATIC F 10/14/2017 KAREN MITCHELL MD Ot Z87.891 PERSONAL HISTORY OF NICOTINE DEPENDENCE 10/14/2017 KAREN MITCHELL MD Ot Z96.643 PRESENCE OF ARTIFICIAL HIP JOINT, BILATE 10/16/2017 KAREN MITCHELL MD Ot E78.00 PURE HYPERCHOLESTEROLEMIA, UNSPECIFIED 10/16/2017 KAREN MITCHELL MD J Ot I10 ESSENTIAL (PRIMARY) HYPERTENSION 10/16/2017 KAREN MITCHELL MD J Ot J18.9 PNEUMONIA, UNSPECIFIED ORGANISM 10/16/2017 KAREN MITCHELL MD J Ot J44.9 CHRONIC OBSTRUCTIVE PULMONARY DISEASE, U 10/16/2017 KAREN MITCHELL MD J Ot R07.81 PLEURODYNIA 10/16/2017 KAREN MITCHELL MD J Ot R07.89 OTHER CHEST PAIN 10/16/2017 KAREN MITCHELL MD Ot Z79.82 SENIOR LIVING (CURRENT) USE OF ASPIRIN 10/16/2017 KAREN MITCHELL MD J Ot Z87.81 PERSONAL HISTORY OF (HEALED) TRAUMATIC F 10/16/2017 KAREN MITCHELL MD Ot Z87.891 PERSONAL HISTORY OF NICOTINE DEPENDENCE 10/16/2017 KAREN MITCHELL MD J Ot Z96.643 PRESENCE OF ARTIFICIAL HIP JOINT, BILATE 11/20/2017 WANDA MATHIS DO Ot 496 CHR AIRWAY OBSTRUCT NEC 11/20/2017 WANDA MATHIS DO Ot 786.09 RESPIRATORY ABNORM NEC 11/20/2017 YANNA SHERIDAN APRN Ot R60.0 LOCALIZED EDEMA 11/20/2017 YANNA SHERIDAN APRN Ot F17.201 NICOTINE DEPENDENCE, UNSPECIFIED, IN REM 11/20/2017 YANNA SHERIDAN APRN Ot J43.8 OTHER EMPHYSEMA 11/20/2017 YANNA SHERIDAN APRN Ot R06.02 SHORTNESS OF BREATH 11/20/2017 YANNA SHERIDAN APRN Ot R91.1 SOLITARY PULMONARY NODULE 11/20/2017 YANNA SHERIDAN APRN Ot J43.8 OTHER EMPHYSEMA 11/20/2017 YANNA SHERIDAN APRN Ot R06.02 SHORTNESS OF BREATH 11/20/2017 YANNA SHERIDAN APRN Ot R06.2 WHEEZING 11/20/2017 WANDA MATHIS DO Ot E66.9 OBESITY, UNSPECIFIED 11/20/2017 WANDA MATHIS DO Ot J43.8 OTHER EMPHYSEMA 11/20/2017 WANDA MATHIS DO Ot R91.1 SOLITARY PULMONARY NODULE 11/25/2017 YANNA SHERIDAN APRN Ot R91.8 OTHER NONSPECIFIC ABNORMAL FINDING OF JOANIE 12/17/2017 YANNA SHERIDAN APRN Ot R91.8 OTHER NONSPECIFIC ABNORMAL FINDING OF JOANIE 12/22/2017 YANNA SHERIDAN APRN Ot R91.8 OTHER NONSPECIFIC ABNORMAL FINDING OF JOANIE 12/23/2017 WANDA MATHIS DO Ot Z01.818 ENCOUNTER FOR OTHER PREPROCEDURAL EXAMIN 12/29/2017 WANDA MATHIS DO Ot E66.9 OBESITY, UNSPECIFIED 12/29/2017 WANDA MATHIS DO Ot J44.9 CHRONIC OBSTRUCTIVE PULMONARY DISEASE, U 12/29/2017 WANDA MATHIS DO Ot J84.9 INTERSTITIAL PULMONARY DISEASE, UNSPECIF 12/29/2017 WANDA MATHIS DO Ot R91.1 SOLITARY PULMONARY NODULE 12/30/2017 WANDA MATHIS DO Ot E66.9 OBESITY, UNSPECIFIED 12/30/2017 WANDA MATHIS DO Ot J44.9 CHRONIC OBSTRUCTIVE PULMONARY DISEASE, U 12/30/2017 WANDA MATHIS DO Ot J84.9 INTERSTITIAL PULMONARY DISEASE, UNSPECIF 12/30/2017 WANDA MATHIS DO Ot R91.1 SOLITARY PULMONARY NODULE Procedures Code Description Performed By Performed On G0008 FLU ADMINISTRATION ( MEDICARE ONLY) 03/31/2013 24448 XRAY HIP LEFT UNILATERAL MIN 2 VIEWS 05/26/2013 77882 XRAY HIP LEFT UNILATERAL MIN 2 VIEWS 05/31/2013 JOINT INJECTION- LARGE JOINT (SPECIFY MEDCIN DESCRIPTION) 08/06/2013 JOINT INJECTION- LARGE JOINT (SPECIFY MEDCIN DESCRIPTION) 08/06/2013 ORTHOPYOVANNY KAPLAN ODILON 09/24/2013 45484 XRAY HIP RIGHT UNILATERAL MIN 2 VIEWS 10/25/2013 35905 XRAY HIP RIGHT UNILATERAL MIN 2 VIEWS [...] protein measurement (mass/volume) 0.71 mg /dL 0.00-0.50 Complete blood count (CBC) with automated white blood cell (WBC) differential - 08/26/17 10:00 Blood leukocytes automated count (number/volume) 10.2 10*3/uL 4.3-11.0 Blood erythrocytes automated count (number/volume) 4.64 10*6/uL 4.35-5.85 Venous blood hemoglobin measurement (mass/volume) 13.8 g/dL 13.3-17.7 Blood hematocrit (volume fraction) 41 % 40-54 Automated erythrocyte mean corpuscular volume 89 [foz_us] 80-99 Automated erythrocyte mean corpuscular hemoglobin (mass per erythrocyte) 30 pg 25-34 Automated erythrocyte mean corpuscular hemoglobin concentration measurement ( mass/volume) 34 g/dL 32-36 Automated erythrocyte distribution width ratio 14.6 % 10.0-14.5 Automated blood platelet count (count/volume) 340 10*3/uL 130-400 Automated blood platelet mean volume measurement 9.6 [foz_us] 7.4-10.4 Automated blood neutrophils/100 leukocytes 68 % 42-75 Automated blood lymphocytes/100 leukocytes 20 % 12-44 Blood monocytes/100 leukocytes 9 % 0-12 Automated blood eosinophils/100 leukocytes 2 % 0-10 Automated blood basophils/100 leukocytes 1 % 0-10 Blood neutrophils automated count (number/volume) 7.0 10*3 1.8-7.8 Blood lymphocytes automated count (number/volume) 2.1 10*3 1.0-4.0 Blood monocytes automated count (number/volume) 0.9 10*3 0.0-1.0 Automated eosinophil count 0.2 10*3/uL 0.0-0.3 Automated blood basophil count (count/volume) 0.1 10*3/uL 0.0-0.1 Blood lactic acid measurement (moles/volume) - 08/26/17 10:00 Blood lactic acid measurement (moles/volume) 1.87 mmol/L 0.50-2.00 Influenza virus A and B antigen detection - 08/26/17 10:00 FLU RESULT NEGATIVE FOR INFLUENZA A AND B ANTIGENS BY [facility] Comprehensive metabolic panel - 08/26/17 10:00 Serum or plasma sodium measurement (moles/volume) 137 mmol/L 135-145 Serum or plasma potassium measurement (moles/volume) 4.3 mmol/L 3.6-5.0 Serum or plasma chloride measurement (moles/volume) 102 mmol/L 98-107 Carbon dioxide 24 mmol/L 21-32 Serum or plasma anion gap determination (moles/volume) 11 mmol/L 5-14 Serum or plasma urea nitrogen measurement (mass/volume) 13 mg/dL 7-18 Serum or plasma creatinine measurement (mass/volume) 1.49 mg/dL 0.60-1.30 Serum or plasma urea nitrogen/creatinine mass ratio 9 NRG Serum or plasma creatinine measurement with calculation of estimated glomerular filtration rate 46 NRG Serum or plasma glucose measurement (mass/volume) 127 mg/dL 70-105 Serum or plasma calcium measurement (mass/volume) 10.6 mg/dL 8.5-10.1 Serum or plasma total bilirubin measurement (mass/volume) 0.9 mg/dL 0.1-1.0 Serum or plasma alkaline phosphatase measurement (enzymatic activity/volume) 78 U/L 40-136 Serum or plasma aspartate aminotransferase measurement (enzymatic activity/ volume) 17 U/L 5-34 Serum or plasma alanine aminotransferase measurement (enzymatic activity/volume ) 22 U/L 0-55 Serum or plasma protein measurement (mass/volume) 7.3 g/dL 6.4-8.2 Serum or plasma albumin measurement (mass/volume) 4.3 g/dL 3.2-4.5 Bacterial blood culture - 08/26/17 10:00 Bacterial blood culture [facility] Bacterial blood culture - 08/26/17 10:32 Bacterial blood culture [facility] Complete blood count (CBC) with automated white blood cell (WBC) differential - 10/14/17 22:20 Blood leukocytes automated count (number/volume) 12.9 10*3/uL 4.3-11.0 Blood erythrocytes automated count (number/volume) 4.32 10*6/uL 4.35-5.85 Venous blood hemoglobin measurement (mass/volume) 13.0 g/dL 13.3-17.7 Blood hematocrit (volume fraction) 39 % 40-54 Automated erythrocyte mean corpuscular volume 90 [foz_us] 80-99 Automated erythrocyte mean corpuscular hemoglobin (mass per erythrocyte) 30 pg 25-34 Automated erythrocyte mean corpuscular hemoglobin concentration measurement ( mass/volume) 33 g/dL 32-36 Automated erythrocyte distribution width ratio 15.1 % 10.0-14.5 Automated blood platelet count (count/volume) 356 10*3/uL 130-400 Automated blood platelet mean volume measurement 9.6 [foz_us] 7.4-10.4 Automated blood neutrophils/100 leukocytes 76 % 42-75 Automated blood lymphocytes/100 leukocytes 16 % 12-44 Blood monocytes/100 leukocytes 7 % 0-12 Automated blood eosinophils/100 leukocytes 1 % 0-10 Automated blood basophils/100 leukocytes 1 % 0-10 Blood neutrophils automated count (number/volume) 9.7 10*3 1.8-7.8 Blood lymphocytes automated count (number/volume) 2.0 10*3 1.0-4.0 Blood monocytes automated count (number/volume) 0.9 10*3 0.0-1.0 Automated eosinophil count 0.2 10*3/uL 0.0-0.3 Automated blood basophil count (count/volume) 0.1 10*3/uL 0.0-0.1 Comprehensive metabolic panel - 10/14/17 22:20 Serum or plasma sodium measurement (moles/volume) 139 mmol/L 135-145 Serum or plasma potassium measurement (moles/volume) 4.2 mmol/L 3.6-5.0 Serum or plasma chloride measurement (moles/volume) 105 mmol/L 98-107 Carbon dioxide 25 mmol/L 21-32 Serum or plasma anion gap determination (moles/volume) 9 mmol/L 5-14 Serum or plasma urea nitrogen measurement (mass/volume) 17 mg/dL 7-18 Serum or plasma creatinine measurement (mass/volume) 1.52 mg/dL 0.60-1.30 Serum or plasma urea nitrogen/creatinine mass ratio 11 NRG Serum or plasma creatinine measurement with calculation of estimated glomerular filtration rate 45 NRG Serum or plasma glucose measurement (mass/volume) 135 mg/dL 70-105 Serum or plasma calcium measurement (mass/volume) 9.6 mg/dL 8.5-10.1 Serum or plasma total bilirubin measurement (mass/volume) 0.7 mg/dL 0.1-1.0 Serum or plasma alkaline phosphatase measurement (enzymatic activity/volume) 72 U/L 40-136 Serum or plasma aspartate aminotransferase measurement (enzymatic activity/ volume) 18 U/L 5-34 Serum or plasma alanine aminotransferase measurement (enzymatic activity/volume ) 19 U/L 0-55 Serum or plasma protein measurement (mass/volume) 6.8 g/dL 6.4-8.2 Serum or plasma albumin measurement (mass/volume) 4.1 g/dL 3.2-4.5 Serum or plasma troponin i.cardiac measurement (mass/volume) - 10/14/17 22:20 Serum or plasma troponin i.cardiac measurement (mass/volume) < ng/ mL <0.30 Serum or plasma lithium measurement (moles/volume) - 10/14/17 22:20 BNP level 16.2 pg/mL <100.0 Serum or plasma C reactive protein measurement (mass/volume) - 10/14/17 22:20 Serum or plasma C reactive protein measurement (mass/volume) 0.47 mg /dL 0.00-0.50 Sputum Gram stain - 12/29/17 08:15 GRAM STAIN SPUTUM AND MIXED BACTERIAL KIN NRG Bacteria identification in bronchial specimen by aerobe culture - 12/29/17 08: 15 QUANTITY OF GROWTH Scant Growth NRG Bacteria identification in bronchial specimen by aerobe culture [id number] NR FTX;REPORTABLE SENSITIVITY REPORTED AT 0755, 618 NR FREE TEXT ENTRY 2 PLUS NORM KIN NRG Mycobacterium species detection by organism specific culture - 12/29/17 08:15 QUANTITY OF GROWTH . NRG Mycobacterium species detection by organism specific culture SEE REPORT NRG Bacterial susceptibility panel - 12/29/17 08:15 Gentamicin susceptibility test by minimum inhibitory concentration < = NRG Trimethoprim/sulfamethoxazole susceptibility test by minimum inhibitoryconcentration S NRG Tobramycin susceptibility test by minimum inhibitory concentration 8 NRG Cefazolin susceptibility test by minimum inhibitory concentration > = NRG Ceftriaxone susceptibility test by minimum inhibitory concentration <= NRG Ciprofloxacin susceptibility test by minimum inhibitory concentration <= NRG Meropenem susceptibility test by minimum inhibitory concentration < = NRG Aztreonam susceptibility test by minimum inhibitory concentration < = NRG Bacterial susceptibility panel - 12/29/17 08:15 Gentamicin susceptibility test by minimum inhibitory concentration < = NRG Trimethoprim/sulfamethoxazole susceptibility test by minimum inhibitoryconcentration S NRG Ampicillin susceptibility test by minimum inhibitory concentration > = NRG Tobramycin susceptibility test by minimum inhibitory concentration < = NRG Cefazolin susceptibility test by minimum inhibitory concentration > = NRG Ceftriaxone susceptibility test by minimum inhibitory concentration <= NRG Ampicillin/sulbactam susceptibility test by minimum inhibitory concentration S NRG Piperacillin/tazobactam susceptibility test by minimum inhibitory concentration S NRG Ciprofloxacin susceptibility test by minimum inhibitory concentration <= NRG Meropenem susceptibility test by minimum inhibitory concentration < = NRG Aztreonam susceptibility test by minimum inhibitory concentration < = NRG Extended spectrum beta lactamase (ESBL) producing bacteria susceptibility test by minimum inhibitory concentration - [facility] Fungus culture - 12/29/17 08:15 QUANTITY OF GROWTH Scant Growth [facility] Fungus culture [id number] [facility] Automated blood complete blood count (hemogram) panel - 02/05/18 08:15 Blood leukocytes automated count (number/volume) 7.5 10*3/uL 4.3-11.0 Blood erythrocytes automated count (number/volume) 4.02 10*6/uL 4.35-5.85 Venous blood hemoglobin measurement (mass/volume) 12.1 g/dL 13.3-17.7 Blood hematocrit (volume fraction) 37 % 40-54 Automated erythrocyte mean corpuscular volume 92 [foz_us] 80-99 Automated erythrocyte mean corpuscular hemoglobin (mass per erythrocyte) 30 pg 25-34 Automated erythrocyte mean corpuscular hemoglobin concentration measurement ( mass/volume) 33 g/dL 32-36 Automated erythrocyte distribution width ratio 14.0 % 10.0-14.5 Automated blood platelet count (count/volume) 290 10*3/uL 130-400 Automated blood platelet mean volume measurement 9.5 [foz_us] 7.4-10.4 PT panel in platelet poor plasma by coagulation assay - 02/05/18 08:15 Prothrombin time (PT) in platelet poor plasma by coagulation assay 13.7 s 12.2-14.7 INR in platelet poor plasma or blood by coagulation assay 1.0 0.8-1.4 Activated partial thromboplastin time (aPTT) in platelet poor plasma bycoagulation assay - 02/05/18 08:15 Activated partial thromboplastin time (aPTT) in platelet poor plasma bycoagulation assay 26 s 24-35 Encounters ACCT No. Visit Date/Time Discharge Status Pt. Type Provider Facility Loc./Unit Complaint [id number] 11/02/2014 11:26:00 11/02/2014 23:59:59 CLS Outpatient GURPREET AGUILA DO [id number] 01/03/2014 09:44:00 01/03/2014 23:59:59 CLS Outpatient MARICRUZ GOODMAN DDS [id number] 12/17/2013 08:34:00 12/17/2013 23:59:59 CLS Outpatient GURPREET AGUILA DO [id number] 11/19/2013 09:17:00 11/19/2013 23:59:59 CLS Outpatient BERTO ALMENDAREZ APRN [id number] 11/18/2013 13:54:00 11/18/2013 23:59:59 CLS Outpatient GURPREET AGUILA DO [id number] 10/29/2013 13:51:00 10/29/2013 23:59:59 CLS Outpatient AYLA DOGURPREET [id number] 10/25/2013 12:17:00 10/25/2013 23:59:59 CLS Outpatient AGUILA GURPREET GUERRERO [id number] 09/24/2013 10:19:00 09/24/2013 23:59:59 CLS Outpatient GURPREET AGUILA DO [id number] 08/16/2013 15:50:00 08/16/2013 23:59:59 CLS Outpatient ANGELAJoannJUSTINO VELÁSQUEZNBERTO [id number] 08/06/2013 09:41:00 08/06/2013 23:59:59 CLS Outpatient GURPREET AGUILA DO [id number] 05/31/2013 08:27:00 05/31/2013 23:59:59 CLS Outpatient GURPREET AGUILA DO [id number] 05/26/2013 08:54:00 05/26/2013 23:59:59 CLS Outpatient AGUILA GURPREET GUERRERO [id number] 03/31/2013 08:20:00 Document Registration [id number] 02/05/2015 14:01:12 ACT Document Registration [id number] 01/27/2018 10:57:00 01/27/2018 23:59:59 CLS Preadmit YANNA SHERIDAN APRN [facility] RAD LUNG NODULE SEEN ON IMAGING STUDY [id number] 12/29/2017 06:33:00 12/29/2017 10:10:00 DIS Outpatient WANDA MATHIS DO [facility] ENDO LUNG NODULE/COPD/ DYSPNEA [id number] 12/22/2017 06:00:00 12/22/2017 16:01:00 DIS Outpatient WANDA MATHIS DO [facility] PREOP BRONCHOSCOPY [id number] 11/24/2017 09:03:00 11/24/2017 23:59:59 CLS Outpatient YANNA SHERIDAN SOFTWARE DEVELOPMENT TEST ENGINEER [facility] RAD COPD [id number] 10/14/2017 21:09:00 10/14/2017 23:33:00 DIS Emergency KAREN MITCHELL MD [facility] ER POSS PNEUMONIA [id number] 08/26/2017 09:33:00 08/26/2017 12:14:00 DIS Emergency ROGER ZARATE DO [facility] ER PAIN WHEN BREATHING/POSS PNEUMONNIA PER PT [id number] 05/21/2017 08:33:00 05/21/2017 23:59:59 CLS Outpatient WANDA MATHIS DO [facility] RAD LUNG NODULE R91.1 [id number] 03/26/2017 09:50:00 03/26/2017 23:59:59 CLS Outpatient YANNA SHERIDAN SOFTWARE DEVELOPMENT TEST ENGINEER [facility] RT COPD [id number] 03/18/2017 08:01:00 03/18/2017 23:59:59 CLS Outpatient YANNA SHERIDAN SOFTWARE DEVELOPMENT TEST ENGINEER [facility] RAD LUNG NODULE [id number] 02/26/2017 10:27:00 02/26/2017 13:58:00 DIS Emergency RAFFAELE PATTON MD [facility] ER ABD TIGHNESS [id number] 02/09/2016 10:19:00 02/09/2016 23:59:59 CLS Outpatient YANNA SHERIDAN SOFTWARE DEVELOPMENT TEST ENGINEER [facility] RAD EDEMA OF LEFT LOWER EXTREMITY [id number] 12/10/2015 13:52:00 12/10/2015 16:07:00 DIS Emergency NURIA WILLSON, DAMASO Zee [facility] ER L SIDE NUMBNESS [id number] 06/22/2015 23:16:00 06/23/2015 11:29:00 DIS Inpatient SARAH WILLSON, MYA Sanchez [facility] 4TH CHEST PAIN [id number] 02/05/2015 14:00:00 02/05/2015 15:20:00 DIS Emergency MILLY OLIVA SOFTWARE DEVELOPMENT TEST ENGINEER [facility] ER TICK BITE [id number] 08/22/2014 12:51:00 08/22/2014 23:59:59 CLS Outpatient WANDA MATHIS DO [facility] RT COPD DYSPNEA [id number] 07/16/2013 17:45:00 07/16/2013 18:40:00 DIS Emergency DAMASO QUIÑONES MD [facility] ER SOA [id number] 07/16/2013 14:42:00 07/16/2013 17:31:00 DIS Emergency DAMASO QUIÑONES MD [facility] ER SOA [id number] 03/16/2013 08:32:00 03/16/2013 09:41:00 DIS Emergency RAFFAELE PATTON MD [facility] ER COUGH/CONGESTION [id number] 03/04/2013 15:45:00 03/04/2013 17:48:00 DIS Emergency ROGER ZARATE DO [facility] ER RT SIDE PAIN [id number] 03/04/2013 15:45:00 03/04/2013 23:59:59 CLS Emergency
== END 2018-02-05 14:30 | disposition home or self-care (01) ==
LOC: SDC 10:45 → SURG 10:45 → SDC 14:30
PROVIDERS: ATTEND Internal Medicine Critical Care Medicine
DX: R91.1 Solitary pulmonary nodule (principal); R06.00 Dyspnea, unspecified; J44.9 Chronic obstructive pulmonary disease, unspecified; Z87.891 Personal history of nicotine dependence; Z79.82 Long term (current) use of aspirin
CPT/HCPCS: 36415; 36430; 71045; 77012; 85027; 85610; 85730

== ENCOUNTER 2018-02-07 10:03 | Emergency (ER) | payer MEDICARE ==
[~2018-02-07] VITALS: Ht 167.6 cm; Wt 81.6 kg
[~2018-02-07 10:03] MED LIST changes: -ACETAMINOPHEN 500 MG TAB (TYLENOL) PO ONE; -HYDROcodone/APAP 5 MG/325 MG (LORTAB) TAB PO PRN; -LIDOCAINE 1% INJ 20 ML 20 ML VIAL INJ ONE; -MIDAZOLAM 2 MG/2 ML (VERSED) VIAL IVP PRN; -NS IV 1000 ML 1,000 ML IV STA; -fentaNYL INJECTION 100 MCG/2 ML AMP IVP PRN
--- OUTSIDE RECORDS SUMMARY | 2018-02-07 10:11 | XMS REPORT | Continuity of Care Document ---
Author Author [facility] Address Unknown Phone Unavailable Allergies Active Description Code Type Severity Reaction Onset Reported/Identified Relationship to Patient Clinical Status Yes No Known Drug Allergies [id number] Drug Allergy Unknown N/A 12/29/2017 Medications There [...] GURPREET K V04.81 FLU SHOT 03/31/2013 ANGELALJUSTINO CLEANING AND MAINTENANCE WORKER BERTO E 401.9 UNSPECIFIED ESSENTIAL HYPERTENSION 03/31/2013 ERICKSON CLEANING AND MAINTENANCE WORKER BERTO E 496 CHRONIC AIRWAY OBSTRUCTION NOT ELSEWHERE CLASSIFIED 03/31/2013 ERICKSON CLE[employer]ING AND MAINTENANCE WORKER BERTO E V04.81 FLU SHOT 03/31/2013 AGUILA [...] WANDA M Ot 786.09 02/05/2015 MILLY OLIVA CLEANING AND MAINTENANCE WORKER Ot 914.4 INSECT BITE HAND 02/05/2015 MILLY OLIVA CLEANING AND MAINTENANCE WORKER Ot E000.8 OTHER EXTERNAL CAUSE STATUS 02/05/2015 MILLY OLIVA CLEANING AND MAINTENANCE WORKER Ot E906.4 NONVENOM ARTHROPOD BITE 02/09/2015 WANDA [...] Ot R60.0 LOCALIZED EDEMA 02/13/2016 YANNA SHERIDAN CLEANING AND MAINTENANCE WORKER Ot R60.0 LOCALIZED EDEMA 03/05/2016 YANNA SHERIDAN CLEANING AND MAINTENANCE WORKER Ot R60.0 LOCALIZED EDEMA 03/15/2016 YANNA SHERIDAN [...] OTHER NONSPECIFIC ABNORMAL FINDING OF JOANIE 02/26/2017 RFAFAELE PATTON MD Ot Z79.82 SPRING TACKER (CURRENT) USE OF ASPIRIN 02/26/2017 RAFFAELE PATTON [...] JOANIE 02/27/2017 RAFFAELE PATTON MD Ot Z79.82 FDC (CURRENT) USE OF ASPIRIN 02/27/2017 RAFFAELE PATTON [...] Ot J43.8 OTHER EMPHYSEMA 03/26/2017 YANNA SHERIDAN CLEANING AND MAINTENANCE WORKER Ot R06.02 SHORTNESS OF BREATH 03/26/2017 YANNA SHERIDAN APRN Ot R91.1 SOLITARY PULMONARY NODULE 04/11/2017 YANNA SHERIDAN APRN Ot F17.201 NICOTINE DEPENDENCE, UNSPECIFIED, IN REM 04/11/2017 YANNA SHERIDAN CLEANING AND MAINTENANCE WORKER Ot J43.8 OTHER EMPHYSEMA 04/11/2017 YANNA SHERIDAN APRN Ot R06.02 SHORTNESS OF BREATH 04/11/2017 YANNA SHERIDAN APRN Ot R91.1 SOLITARY PULMONARY NODULE 04/16/2017 YANNA SHERIDAN APRN Ot F17.201 NICOTINE DEPENDENCE, UNSPECIFIED, IN REM 04/16/2017 YANNA SHERIDAN CLEANING AND MAINTENANCE WORKER Ot J43.8 OTHER EMPHYSEMA 04/16/2017 YANNA SHERIDAN CLEANING AND MAINTENANCE WORKER Ot R06.02 SHORTNESS OF BREATH 04/16/2017 YANNA SHERIDAN APRN Ot R91.1 SOLITARY PULMONARY NODULE 05/21/2017 WANDA MATHIS DO Ot 496 CHR AIRWAY OBSTRUCT NEC 05/21/2017 WANDA MATHIS DO Ot 786.09 RESPIRATORY ABNORM NEC 05/21/2017 YANNA SHERIDAN APRN Ot R60.0 LOCALIZED EDEMA 05/21/2017 YANNA SHERIDAN CLEANING AND MAINTENANCE WORKER Ot F17.201 NICOTINE DEPENDENCE, UNSPECIFIED, IN REM 05/21/2017 YANNA SHERIDAN CLEANING AND MAINTENANCE WORKER Ot J43.8 OTHER EMPHYSEMA 05/21/2017 YANNA SHERIDAN CLEANING AND MAINTENANCE WORKER Ot R06.02 SHORTNESS OF BREATH 05/21/2017 YANNA [...] 08/26/2017 TESSA DO, ROGER K Ot Z79.52 SPRING TACKER (CURRENT) USE OF SYSTEMIC STER 08/26/2017 TESSA DO, ROGER K Ot Z79.82 FDC (CURRENT) USE OF ASPIRIN 08/26/2017 TESSA DO, [...] 08/28/2017 TESSA DO, ROGER K Ot Z79.52 SPRING TACKER (CURRENT) USE OF SYSTEMIC STER 08/28/2017 TESSA DO, ROGER K Ot Z79.82 FDC (CURRENT) USE OF ASPIRIN 08/28/2017 TESSA DO, [...] 10/14/2017 KAREN MITCHELL MD J Ot Z79.82 SPRING TACKER (CURRENT) USE OF ASPIRIN 10/14/2017 KAREN MITCHELL [...] PAIN 10/16/2017 KAREN MITCHELL MD Ot Z79.82 FDC (CURRENT) USE OF ASPIRIN 10/16/2017 KAREN MITCHELL [...] G0008 FLU ADMINISTRATION ( MEDICARE ONLY) 03/31/2013 70713 XRAY HIP LEFT UNILATERAL MIN 2 VIEWS 05/26/2013 76366 XRAY HIP LEFT UNILATERAL MIN 2 VIEWS 05/31/2013 JOINT INJECTION- LARGE JOINT (SPECIFY MEDCIN DESCRIPTION) 08/06/2013 JOINT INJECTION- LARGE JOINT (SPECIFY MEDCIN DESCRIPTION) 08/06/2013 ORTHOPYOVANNY KAPLAN ODILON 09/24/2013 80693 XRAY HIP RIGHT UNILATERAL MIN 2 VIEWS 10/25/2013 59600 XRAY HIP RIGHT UNILATERAL MIN 2 VIEWS [...] FOR INFLUENZA A AND B ANTIGENS BY [facility] Comprehensive metabolic panel - 08/26/17 10:00 [...] culture - 08/26/17 10:00 Bacterial blood culture [facility] Bacterial blood culture - 08/26/17 10:32 Bacterial blood culture [facility] Complete blood count (CBC) with [...] identification in bronchial specimen by aerobe culture [id number] NR FTX;REPORTABLE SENSITIVITY REPORTED AT 0755, 618 [...] susceptibility test by minimum inhibitory concentration - [facility] Fungus culture - 12/29/17 08:15 QUANTITY OF GROWTH Scant Growth [facility] Fungus culture [id number] [facility] Automated blood complete blood count (hemogram) panel [...] Status Pt. Type Provider Facility Loc./Unit Complaint [id number] 11/02/2014 11:26:00 11/02/2014 23:59:59 CLS Outpatient GURPREET AGUILA DO [id number] 01/03/2014 09:44:00 01/03/2014 23:59:59 CLS Outpatient MARICRUZ GOODMAN DDS [id number] 12/17/2013 08:34:00 12/17/2013 23:59:59 CLS Outpatient GURPREET AGUIAL DO [id number] 11/19/2013 09:17:00 11/19/2013 23:59:59 CLS Outpatient BERTO ALMENDAREZ APRN [id number] 11/18/2013 13:54:00 11/18/2013 23:59:59 CLS Outpatient GURPREET AGUILA DO [id number] 10/29/2013 13:51:00 10/29/2013 23:59:59 CLS Outpatient AYLA DOGURPREET [id number] 10/25/2013 12:17:00 10/25/2013 23:59:59 CLS Outpatient AGUILA GURPREET GUERRERO [id number] 09/24/2013 10:19:00 09/24/2013 23:59:59 CLS Outpatient GURPREET AGUILA DO [id number] 08/16/2013 15:50:00 08/16/2013 23:59:59 CLS Outpatient ANGELAJoannJUSTINO VELÁSQUEZNBERTO [id number] 08/06/2013 09:41:00 08/06/2013 23:59:59 CLS Outpatient GURPREET AGUILA DO [id number] 05/31/2013 08:27:00 05/31/2013 23:59:59 CLS Outpatient GURPREET AGUILA DO [id number] 05/26/2013 08:54:00 05/26/2013 23:59:59 CLS Outpatient AGUILA GURPREET GUERRERO [id number] 03/31/2013 08:20:00 Document Registration [id number] 02/05/2015 14:01:12 ACT Document Registration [id number] 01/27/2018 10:57:00 01/27/2018 23:59:59 CLS Preadmit YANNA SHERIDAN APRN [facility] RAD LUNG NODULE SEEN ON IMAGING STUDY [id number] 12/29/2017 06:33:00 12/29/2017 10:10:00 DIS Outpatient WANDA MATHIS DO [facility] ENDO LUNG NODULE/COPD/ DYSPNEA [id number] 12/22/2017 06:00:00 12/22/2017 16:01:00 DIS Outpatient WANDA MATHIS DO [facility] PREOP BRONCHOSCOPY [id number] 11/24/2017 09:03:00 11/24/2017 23:59:59 CLS Outpatient YANNA SHERIDAN CLEANING AND MAINTENANCE WORKER [facility] RAD COPD [id number] 10/14/2017 21:09:00 10/14/2017 23:33:00 DIS Emergency KAREN MITCHELL MD [facility] ER POSS PNEUMONIA [id number] 08/26/2017 09:33:00 08/26/2017 12:14:00 DIS Emergency ROGER ZARATE DO [facility] ER PAIN WHEN BREATHING/POSS PNEUMONNIA PER PT [id number] 05/21/2017 08:33:00 05/21/2017 23:59:59 CLS Outpatient WANDA MATHIS DO [facility] RAD LUNG NODULE R91.1 [id number] 03/26/2017 09:50:00 03/26/2017 23:59:59 CLS Outpatient YANNA SHERIDAN CLEANING AND MAINTENANCE WORKER [facility] RT COPD [id number] 03/18/2017 08:01:00 03/18/2017 23:59:59 CLS Outpatient YANNA SHERIDAN CLEANING AND MAINTENANCE WORKER [facility] RAD LUNG NODULE [id number] 02/26/2017 10:27:00 02/26/2017 13:58:00 DIS Emergency RAFFAELE PATTON MD [facility] ER ABD TIGHNESS [id number] 02/09/2016 10:19:00 02/09/2016 23:59:59 CLS Outpatient YANNA SHERIDAN CLEANING AND MAINTENANCE WORKER [facility] RAD EDEMA OF LEFT LOWER EXTREMITY [id number] 12/10/2015 13:52:00 12/10/2015 16:07:00 DIS Emergency NURIA WILLSON, DAMASO Zee [facility] ER L SIDE NUMBNESS [id number] 06/22/2015 23:16:00 06/23/2015 11:29:00 DIS Inpatient SARAH WILLSON, MYA Sanchez [facility] 4TH CHEST PAIN [id number] 02/05/2015 14:00:00 02/05/2015 15:20:00 DIS Emergency MILLY OLIVA CLEANING AND MAINTENANCE WORKER [facility] ER TICK BITE [id number] 08/22/2014 12:51:00 08/22/2014 23:59:59 CLS Outpatient WANDA MATHIS DO [facility] RT COPD DYSPNEA [id number] 07/16/2013 17:45:00 07/16/2013 18:40:00 DIS Emergency DAMASO QUIÑONES MD [facility] ER SOA [id number] 07/16/2013 14:42:00 07/16/2013 17:31:00 DIS Emergency DAMASO QUIÑONES MD [facility] ER SOA [id number] 03/16/2013 08:32:00 03/16/2013 09:41:00 DIS Emergency RAFFAELE PATTON MD [facility] ER COUGH/CONGESTION [id number] 03/04/2013 15:45:00 03/04/2013 17:48:00 DIS Emergency ROGER ZARATE DO [facility] ER RT SIDE PAIN [id number] 03/04/2013 15:45:00 03/04/2013 23:59:59 CLS Emergency
--- NOTE | 2018-02-07 11:17 | Diagnostic Imaging Report ---
INDICATION: Left lung biopsy 2 days ago. Shortness of breath. COMPARISON: 02/05/2018. FINDINGS: There has been development of considerable left lung pneumothorax. Approximally 30-50% pneumothorax is present. There is subcutaneous emphysema. Right lung is well-aerated and clear. The heart is not enlarged. IMPRESSION: Development of moderate pneumothorax on the left when compared with previous exam. Would consider chest tube placement. CRITICAL FINDINGS Dictated by: Dictated on workstation # [id number]
--- NOTE | 2018-02-07 12:18 | ED Respiratory ---
General Chief Complaint: Respiratory Problems Stated Complaint: SOA Nursing Triage Note: ARRIVED VIA EMS FROM HOME WITH COMPLAINTS OF INCRESED SOA SINCE HAVING HIS LEFT LUNG BX X2 DAYS AGO. Source: patient, family Exam Limitations: no limitations History of Present Illness Date Seen by Provider: Feb 07, 2018 Time Seen by Provider: 12:15 Initial Comments The patient is a 72-year-old white male who presents with complaints of increased shortness of breath. The patient relates that on 02/[address]- guided needle biopsy of a pulmonary nodule. He had been warned that a complication might be that of an air leak. He reports that today although he has no pain he is more short of breath than his usual level. Timing/Duration: this morning Severity: moderate Prior Episodes/Possible Cause: no prior episodes Allergies and Home Medications Allergies Coded Allergies: No Known Drug Allergies (Verified , 12/29/17) Home Medications Albuterol Sulfate 2.5 Mg/3 Ml Vial.neb, 1 VIAL INH Q4H PRN for WHEEZING, ( Reported) Albuterol Sulfate 1 Puff Puff, 2 PUFF INH Q4H PRN for WHEEZING, (Reported) Aspirin 81 Mg Tablet.dr, 81 MG PO DAILY, (Reported) Atorvastatin Calcium 20 Mg Tablet, 20 MG PO HS, (Reported) Budesonide/Formoterol Fumarate 10.2 Gm Hfa.aer.ad, 2 PUFF IH BID, (Reported) Furosemide 20 Mg Tablet, 20 MG PO HS, (Reported) Lisinopril 40 Mg Tablet, 40 MG PO HS, (Reported) Montelukast Sodium 10 Mg Tablet, 10 MG PO HS, (Reported) Patient Home Medication List Home Medication List Reviewed: Yes Review of Systems Constitutional: see HPI EENTM: no symptoms reported Respiratory: see HPI, dyspnea on exertion, short of breath Cardiovascular: no symptoms reported Gastrointestinal: no symptoms reported Genitourinary: no symptoms reported Musculoskeletal: no symptoms reported Skin: no symptoms reported Psychiatric/Neurological: No Symptoms Reported Hematologic/Lymphatic: No Symptoms Reported Immunological/Allergic: no symptoms reported Past Fmfrffo-Bnmhqt-Yuvvws Hx Patient Social History Alcohol Use: Occasionally Uses Recreational Drug Use: No Smoking Status: Former Smoker Former Smoker, Quit: Dec 22, 1994 2nd Hand Smoke Exposure: No Recent Foreign Travel: No Contact w/Someone Who Travel: No Recent Infectious Disease Expo: No Recent Hopitalizations: No Immunizations Up To Date Tetanus Booster (TDap): More than 5yrs PED Vaccines UTD: Yes Date of Pneumonia Vaccine: Apr 20, 2011 Date of Influenza Vaccine: Apr 20, 2015 Seasonal Allergies Seasonal Allergies: No Past Medical History Surgeries: Yes (Bilat Hip Replacements, 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 ) Chronic Bronchitis, COPD Currently Using CPAP: No Currently Using BIPAP: No Cardiac: Yes (STRESS TEST-NEGATIVE) High Cholesterol, Hypertension Neurological: No Reproductive Disorders: No Sexually Transmitted Disease: No HIV/AIDS: No Genitourinary: No Gastrointestinal: No Musculoskeletal: Yes Arthritis, Fractures Endocrine: No HEENT: Yes Tinnitis Loss of Vision: Denies Hearing Impairment: Hard of Hearing Cancer: Yes (NODULE FOUND ON LEFT LUNG RECENTLY. ) Psychosocial: No Integumentary: No Blood Disorders: No Adverse Reaction/Blood Tranf: No Family Medical History Cardiovascular disease 19 FATHER 19 MOTHER Diabetes mellitus 19 FATHER FH: COPD (chronic obstructive pulmonary disease) 19 FATHER Myocardial infarction 19 FATHER 19 MOTHER Heart Disease, COPD Physical Exam Vital Signs - First Documented 02/07/18 10:03 Temp 98.1 Pulse 115 Resp 16 B/P (MAP) 135/78 (97) Pulse Ox 86 O2 Delivery Room Air Capillary Refill : Less Than 3 Seconds Height: 5'6.00" Weight: 180lbs. 0.0oz. 81.865720rd; 28.9 BMI Method:Stated General Appearance: mild distress Eyes: Bilateral Eye Normal Inspection HEENT: normal ENT inspection Neck: full range of motion Respiratory: decreased breath sounds (dullness on left) Cardiovascular: normal peripheral pulses, regular rate, rhythm, no edema, no gallop, no JVD, no murmur Gastrointestinal: normal bowel sounds, non tender, soft, no organomegaly, no pulsatile mass Extremities: normal range of motion, non-tender, normal inspection, no pedal edema, no calf tenderness Neurologic/Psychiatric: bottle blower II-XII nml as tested, no motor/sensory deficits, alert, normal mood/affect, oriented x 3 Skin: normal color, warm/dry Lymphatic: no adenopathy Progress/Results/Core Measures Suspected Sepsis Recent Fever Within 48 Hours: No Infection Criteria Present: None New/Unexplained Altered Menta: No Sepsis Screen: No Definite Risk SIRS Temperature:98.1 Pulse: 115 Respiratory Rate: 16 Blood Pressure 135 /78 Mean: 97 Results/Orders My Orders Orders - DAMASO QUIÑONES MD Chest Pa/Lat (2 View) (02/07/18 10:42) Lidocaine 1% Inj 20 Ml (Xylocaine 1% Inj (02/07/18 13:17) Chest 1 View, Ap/Pa Only (02/07/18 13:26) Vital Signs/I&O 02/07/18 10:03 Temp 98.1 Pulse 115 Resp 16 B/P (MAP) 135/78 (97) Pulse Ox 86 O2 Delivery Room Air Capillary Refill : Less Than 3 Seconds Blood Pressure Mean: 97 Departure Communication (Admissions) [address] Vickers who is scrubbed in for a cholecystectomy. When done he will come to the emergency room. Percutaneous tube placement was done anteriorly by Dr. Vickers. The patient is to be discharged and to see him in the office on Friday. (1321) Impression Primary Impression: Pneumothorax after biopsy Disposition: HOME, SELF-CARE Condition: Improved Departure-Patient Inst. Decision time for Depature: 13:42 Referrals: NO,LOCAL PHYSICIAN (PCP) Primary Care Physician Add. Discharge Instructions: All discharge instructions reviewed with patient and/or family. Voiced understanding. See Dr. Vickers at the office on Friday. Hydrocodone as needed for pain Scripts Hydrocodone/Acetaminophen (Lorcet Hd 10-325 mg Tablet) 1 Each Tablet 1 EACH PO EVERY 4 HOURS, #15 TAB Prov: DAMASO QUIÑONES MD 02/07/18 DAMASO QUIÑONES MD Feb 07, 2018 12:18
[2018-02-07] MEDS ORDERED: LIDOCAINE 1% INJ 20 ML 20 ML VIAL ONE (13:17)
--- NOTE | 2018-02-07 13:42 | Diagnostic Imaging Report ---
INDICATION: Left pneumothorax with chest tube placement. Comparison with 11:16 a.m. exam. FINDINGS: Portable chest shows a small caliber chest tube overlying the left upper lung. There has been reexpansion of left lung with only a very small apical pneumothorax remaining. Subcutaneous emphysema again noted decreasing slightly. Right lung is well-aerated and clear. Heart is not enlarged. IMPRESSION: Satisfactory left chest tube placement with reexpansion of the left lung. Dictated by: Dictated on workstation # [id number]
--- NOTE | 2018-02-07 13:43 | Progress Note-Post Operative ---
Post-Operative Progess Note Surgeon (s)/Piano Maker (s) Surgeon DIANNE HOPPER DO Piano Maker: na Pre-Operative Diagnosis left pneumothorac Post-Operative Diagnosis same Procedure & Operative Findings Date of Procedure 02/07/18 Procedure Performed/Findings left thoracostomy tube placement Anesthesia Type 1% lidocaine Estimated Blood Loss Estimated blood loss (mL): min Specimens/Packing Specimens Removed none DIANNE HOPPER DO Feb 07, 2018 13:43
[2018-02-07] MEDS ORDERED: HYDR-3876 PO (13:45)
--- NOTE | 2018-02-07 13:50 | Consultation ---
History of Present Illness History of Present Illness Patient Consulted On(juan/time) 02/07/18 13:44 Date Seen by Provider: Feb 07, 2018 Time Seen by Provider: 13:44 History of Present Illness consult requested by Dr. Harris for left pneumothorax patient seen and evaluated in ED. Patient is a 72 year old male who had biopsy of left lung mass on . He has had increasing shortness of air with activity. Patient has some discomfort left chest. Nothing making things better and activity makes worse. He had a chest x ray that i reviewed demonstrating moderated left pneumothorax. Denies any other complaints at this time. Denies n/v fever sweats chills. Allergies and Home Medications Allergies Coded Allergies: No Known Drug Allergies (Verified , 12/29/17) Home Medications Albuterol Sulfate 2.5 Mg/3 Ml Vial.neb, 1 VIAL INH Q4H PRN for WHEEZING, ( Reported) Albuterol Sulfate 1 Puff Puff, 2 PUFF INH Q4H PRN for WHEEZING, (Reported) Aspirin 81 Mg Tablet.dr, 81 MG PO DAILY, (Reported) Atorvastatin Calcium 20 Mg Tablet, 20 MG PO HS, (Reported) Budesonide/Formoterol Fumarate 10.2 Gm Hfa.aer.ad, 2 PUFF IH BID, (Reported) Furosemide 20 Mg Tablet, 20 MG PO HS, (Reported) Lisinopril 40 Mg Tablet, 40 MG PO HS, (Reported) Montelukast Sodium 10 Mg Tablet, 10 MG PO HS, (Reported) Patient Home Medication List Home Medication List Reviewed: Yes Past Tgwvadf-Qzttej-Ctlaix Hx Patient Social History Alcohol Use: Occasionally Uses Recreational Drug Use: No Smoking Status: Former Smoker Former Smoker, Quit: Dec 22, 1994 2nd Hand Smoke Exposure: No Recent Foreign Travel: No Contact w/Someone Who Travel: No Recent Infectious Disease Expo: No Recent Hopitalizations: No Immunizations Up To Date Tetanus Booster (TDap): More than 5yrs PED Vaccines UTD: Yes Date of Pneumonia Vaccine: Apr 20, 2011 Date of Influenza Vaccine: Apr 20, 2015 Seasonal Allergies Seasonal Allergies: No Surgeries History of Surgeries: Yes (Bilat Hip Replacements, 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 ) Respiratory Disorders: Chronic Bronchitis, COPD Cardiovascular History of Cardiac Disorders: Yes (STRESS TEST-NEGATIVE) Cardiac Disorders: High Cholesterol, Hypertension Neurological History of Neurological Disord: No Reproductive System Hx Reproductive Disorders: No Sexually Transmitted Disease: No HIV/AIDS: No Genitourinary History of Genitourinary Disor: No Gastrointestinal History of Gastrointestinal Di: No Musculoskeletal History of Musculoskeletal Dis: Yes Musculoskeletal Disorders: Arthritis, Fractures Endocrine History of Endocrine Disorders: No HEENT History of HEENT Disorders: Yes HEENT Disorders: Tinnitis Loss of Vision: Denies Hearing Impairment: Hard of Hearing Cancer History of Cancer: Yes (NODULE FOUND ON LEFT LUNG RECENTLY. ) Psychosocial History of Psychiatric Problem: No Integumentary History of Skin or Integumenta: No Blood Transfusions History of Blood Disorders: No Adverse Reaction to a Blood Tr: No Family Medical History Significant Family History: Heart Disease, COPD Family Medial History: Cardiovascular disease 19 FATHER 19 MOTHER Diabetes mellitus 19 FATHER FH: COPD (chronic obstructive pulmonary disease) 19 FATHER Myocardial infarction 19 FATHER 19 MOTHER Review of Systems-General Constitutional: no symptoms reported EENTM: no symptoms reported Respiratory: see HPI Gastrointestinal: no symptoms reported Genitourinary: no symptoms reported Musculoskeletal: no symptoms reported Skin: no symptoms reported Psychiatric/Neurological: No Symptoms Reported Physical Exam-General Problems Physical Exam Vital Signs Vital Signs - First Documented 02/07/18 10:03 Temp 98.1 Pulse 115 Resp 16 B/P (MAP) 135/78 (97) Pulse Ox 86 O2 Delivery Room Air Capillary Refill : Less Than 3 Seconds General Appearance: no apparent distress HEENT: PERRL/EOMI Neck: supple Respiratory: decreased breath sounds (left with crepitus on chest wall anterirorly) Cardiovascular: regular rate, rhythm Gastrointestinal: non tender, soft Rectal: deferred Back: normal inspection Extremities: non-tender, normal inspection Neurologic/Psychiatric: publishing specialist II-XII nml as tested, no motor/sensory deficits, alert, normal mood/affect, oriented x 3 Skin: normal color, warm/dry Lymphatic: no adenopathy Assessment/Plan Assessment/Plan Assessment/Plan left pneumothorax s/p left lung biopsy for lung mass shortness of air patient discussed risks and benefits of thoracostomy tube placement, he understands and wishes to proceed. patient will follow up friday with ca thoravent valve placed any issues return to ER. DIANNE HOPPER DO Feb 07, 2018 13:50
[2018-02-07 14:00] VITALS: BP 127/92
--- NOTE | 2018-02-07 15:54 | OPERATIVE REPORT ---
DATE OF SERVICE: 02/07/2018 PREOPERATIVE DIAGNOSIS: Left pneumothorax. POSTOPERATIVE DIAGNOSIS: Left pneumothorax. PROCEDURE: Placement of thoracostomy tube, left chest. SURGEON: Dianne Vickers DO ANESTHESIA: 1% lidocaine. ESTIMATED BLOOD LOSS: Minimal. COMPLICATIONS: None. INDICATIONS: The patient is a 72-year-old male with left pneumothorax. He underwent biopsy of a lung mass last . He is having increased shortness of air. X-ray demonstrating moderate left pneumothorax. He was explained risks and benefits of procedure and wished to proceed with the procedure. Consent was signed on the chart. DESCRIPTION OF PROCEDURE: The patient was prepped and draped in sterile fashion on the anterior wall of the left chest. Midclavicular line approximately the fourth interspace. Local anesthetic was infiltrated in the area. An 11 blade scalpel was used to make a small skin incision and a Thoravent thoracostomy tube was then inserted into the chest and the needle was removed. Approximately 500 mL of air were removed. The Thoravent was functioning and fixed to the skin. Chest x-ray demonstrated reexpansion of the lung. The patient tolerated the procedure well. RECOMMENDATIONS: The patient will follow up in the office on Friday. If he has any change in condition, he should be reevaluated at that time. Job ID: [id number] DocumentID: [id number] Dictated Date: 02/07/2018 15:21:35 Industrial Design Engineer Date: 02/07/2018 15:53:46 Dictated By: DIANNE VICKERS DO [facility]
== END 2018-02-07 14:00 | disposition home or self-care (01) ==
LOC: EDUNIT# 10:03 → ER 10:04
DX: J95.811 Postprocedural pneumothorax (principal); J44.9 Chronic obstructive pulmonary disease, unspecified; I10 Essential (primary) hypertension; E78.00 Pure hypercholesterolemia, unspecified; Z85.118 Personal history of other malignant neoplasm of bronchus and lung; Z87.891 Personal history of nicotine dependence; Z96.643 Presence of artificial hip joint, bilateral; Z89.021 Acquired absence of right finger(s); Z89.022 Acquired absence of left finger(s)
CPT/HCPCS: 32551; 71045; 71046

== ENCOUNTER → 2018-02-10 | Outpatient (CLI) | payer MEDICARE ==
[~2018-02-10] MED LIST changes: +HYDR-3876 PO
--- NOTE | 2018-02-10 13:36 | Diagnostic Imaging Report ---
INDICATION: Pneumothorax following catheter removal. FINDINGS: Left chest catheter has been removed. Subcutaneous emphysema on the left is unchanged. I cannot identify pleural air or recurrent pneumothorax. Lung volumes symmetric. IMPRESSION: Unchanged soft tissue gas. No appreciable pneumothorax following chest catheter removal. Dictated by: Dictated on workstation # [id number]
== END ==
LOC: RAD 11:48
PROVIDERS: ATTEND Surgery
DX: J95.811 Postprocedural pneumothorax (principal)
CPT/HCPCS: 71046

== ENCOUNTER → 2018-02-10 | Outpatient (CLI) | payer MEDICARE ==
--- NOTE | 2018-02-10 07:41 | Diagnostic Imaging Report ---
EXAMINATION: CHEST (PA AND LATERAL) CLINICAL INDICATION: 72-year-old male, followup left pneumothorax. COMPARISON: February 07, 2018. FINDINGS: There is a catheter projecting over the left upper lobe. There is gas in the left neck and left lateral chest wall. There is no identified sizable pneumothorax. Heart size and mediastinal contours are unremarkable. There is no pleural effusion. There is mild flattening of the hemidiaphragms. There are streaky opacities in the left upper lobe which may reflect atelectasis or infiltrate. These do appear more prominent since comparison exam. IMPRESSION: 1. Redemonstrated and catheter projecting over the left upper lobe. 2. Redemonstrated gas in the left neck and left lateral chest wall without sizable pneumothorax. 3. Streaky opacities in the left upper lobe which may reflect atelectasis and/or infiltrate which are increased since comparison exam. Dictated by: Dictated on workstation # [id number]
== END ==
LOC: RAD 07:14
PROVIDERS: ATTEND Surgery
DX: J93.9 Pneumothorax, unspecified (principal); R91.8 Other nonspecific abnormal finding of lung field
CPT/HCPCS: 71046

== ENCOUNTER → 2018-05-12 | Outpatient (CLI) | payer MEDICARE ==
[~2018-05-12] MED LIST changes: -AMLO5TAB2; +AMLO5TAB7
--- NOTE | 2018-05-12 10:58 | Diagnostic Imaging Report ---
CLINICAL INDICATION: Patient with indeterminate nodule in the left upper lung. Followup exam. EXAM: CT scan of the chest performed without IV contrast with coronal and sagittal reformatted images. COMPARISON: CT scan of the chest without contrast dated 11/24/2017. FINDINGS: There is interval increased size of the spiculated mass in the anterior aspect of the left upper lobe. There is increased central low density suspected to represent cavitation. There is also increased spiculation into the periphery superiorly and anteriorly. This mass now measures 2.6 cm x 1.9 cm compared to the prior study measured at 1.7 cm x 1.7 cm. This lesion is most concerning for lung neoplasm. There is a stable 5 mm noncalcified, pleural-based nodule in the posterior right upper lobe region adjacent to the major fissure. There is no other lung nodule or mass seen. Emphysematous lung disease is again seen. There is no pleural effusion or pneumothorax. There is no significant mediastinum or hilar lymphadenopathy. Mediastinal structures otherwise stable and unremarkable. There is atherosclerotic disease involving the coronary arteries and thoracic aorta. Visualized upper abdominal structures show no significant abnormality. There is degenerative spurs involving the thoracic spine. IMPRESSION: 1: There is interval increased size of the spiculated nodule in the left upper lobe with interval central cavitation. This lesion now measures 2.6 cm in greatest axial dimension compared to the prior study measured at 1.7 cm in greatest axial dimension. This is concerning for lung neoplasm. 2: There is no lymphadenopathy. 3: Emphysematous lung disease. Dictated by: Dictated on workstation # [id number]
== END ==
LOC: RAD 08:47
PROVIDERS: ATTEND Nurse Practitioner Family
DX: J43.9 Emphysema, unspecified (principal); E66.9 Obesity, unspecified
CPT/HCPCS: 71250

== ENCOUNTER → 2018-05-19 | Outpatient (CLI) | payer MEDICARE ==
--- NOTE | 2018-05-19 13:47 | Diagnostic Imaging Report ---
INDICATION: Left upper lobe pulmonary mass. Serum blood glucose level at the time of injection is 122 mg/dL. Patient was administered 14.1 mCi F-18 FDG intravenously in the right antecubital location and PET imaging was performed from the top of the skull to the mid thighs. Noncontrast CT was also performed for attenuation correction and anatomic correlation. Comparison is made with prior PET study from 03/18/2017 as well as a recent chest CT from 05/12/2018. FINDINGS: There is symmetric activity within the brain. No suspicious hypermetabolism is identified in the soft tissues of the neck. There is hypermetabolism involving the spiculated cavitary mass in the left upper lobe noted on recent CT. This demonstrates SUV max of approximately 8. This lesion has increased in size when compared with prior PET scan from 03/18/2017. No mediastinal or hilar hypermetabolism is seen. No other pulmonary parenchymal abnormalities are seen. Physiologic activity within the abdomen and pelvis is seen. No suspicious hypermetabolism is identified. IMPRESSION: FDG avidity is identified in the spiculated and cavitary left upper lobe mass which has increased in size and hypermetabolism since prior PET CT from 03/18/2017. Features are concerning for primary lung neoplasm. There are no findings to suggest metastatic disease. Dictated by: Dictated on workstation # [id number]
== END ==
LOC: RAD 09:55
PROVIDERS: ATTEND Internal Medicine Critical Care Medicine
DX: J44.9 Chronic obstructive pulmonary disease, unspecified (principal); E66.9 Obesity, unspecified; R91.8 Other nonspecific abnormal finding of lung field; Z87.891 Personal history of nicotine dependence

== ENCOUNTER → 2018-05-20 | Outpatient (CLI) | payer MEDICARE ==
[~2018-05-20] MED LIST changes: +RT-ALBUTEROL SULF 2.5 MG/3 ML PRE-MIX VIAL INH ONE; +RT-ALBUTEROL SULF 2.5 MG/3 ML PRE-MIX VIAL ONE
== END ==
LOC: RT 13:55
PROVIDERS: ATTEND Nurse Practitioner Family
DX: J43.8 Other emphysema (principal); R91.1 Solitary pulmonary nodule; E66.9 Obesity, unspecified; Z87.891 Personal history of nicotine dependence
CPT/HCPCS: 94060; 94726; 94729